=== PATIENT | female | born 1975 | race Caucasian/White ===

== ENCOUNTER 2016-12-31 06:41 | Inpatient (IN) | payer MEDICAID, OTHER ==
[~2016-12-31] VITALS: Ht 152.4 cm; Wt 54.4 kg
[2016-12-31] VITALS (10 sets, daily range): BP systolic 101–121; BP diastolic 65–78; PULSE 75–101; RESP 16–18; TEMP 98.6; Ht 152.4 cm; Wt 54.4 kg
[~2016-12-31 06:41] MED LIST: ALBU2.5V3 NEB; ATEN50TA PO; SYN1 PO
[2016-12-31] MEDS ORDERED: ASPIRIN 325 MG TAB PO STA (07:00)
[2016-12-31] MEDS ORDERED: NITROGLYCERIN 2% 1 GM OINT PKT TD STA (07:00)
--- NOTE | 2016-12-31 07:06 | ERA ---
ER Documentation Chief Complaint Date/Time DATE: 12/31/16 TIME: 07:03 Chief Complaint rt flnak pain , chest pain , cough , sob HPI 41-year-old female history of hypertension, hyperlipidemia, smoking, family history of cardiac disease presents with myriad complaints. The patient states that yesterday evening this started with lumbar back pain though she states that she recently moved her daughter into an apartment. However early this morning the patient woke up and started to walk to the bathroom when she started to have chest pain. She described it initially as pleuritic and sharp with associated shortness of breath and now dull, pressure-like radiating to the left upper extremity. She did describe a single episode of vomiting that was nonbloody nonbilious. No fevers or chills. The patient states that she feels short of breath and has generalized malaise. ROS All systems reviewed and are negative except as per history of present illness. Medications Home Meds Reported Medications Albuterol Sulfate* (Albuterol Sulfate* Neb) 0.083%-3 Ml Neb, 2.5 MG NEB Q4H Y for WHEEZING AND SOB, EA 07/12/15 Levothyroxine Sodium* (Synthroid*) 100 Mcg Tablet, 100 MCG PO DAILY 06/19/13 Atenolol* (Atenolol*) 50 Mg Tablet, 50 MG PO DAILY 06/19/13 Allergies Allergies: Coded Allergies: Penicillins (Verified Allergy, Mild, 02/04/14) Uncoded Allergies: PCN (Allergy, Mild, 08/09/11) PENICILLIN (Allergy, Mild, 06/19/13) PMhx/Soc History of Surgery: Yes (THROIDECTOMY) Anesthesia Reaction: No Hx Neurological Disorder: No Hx Respiratory Disorders: Yes (ASTHMA) Hx Cardiac Disorders: Yes (HYPERTENSION,ME) Hx Psychiatric Problems: No Hx Miscellaneous Medical Probl: Yes (CA OF THYROID) Hx Alcohol Use: Yes (SOCIAL) Hx Substance Use: Yes Hx Tobacco Use: Yes (2-5 CIGS) FmHx Family History: coronary disease, No diabetes Physical Exam Vitals Vital Signs Date Time Temp Pulse Resp B/P Pulse Ox O2 Delivery O2 Flow Rate FiO2 12/31/16 07:12 98.6 86 15 136/95 100 Room Air 12/31/16 07:12 Nasal Cannula 2 12/31/16 06:44 98.2 102 18 113/86 98 Physical Exam General: Well developed, well nourished, no acute distress Head: Normocephalic, atraumatic. Eyes: Pupils equally reactive, EOM intact ENT: Moist mucous membranes Neck: Supple, no lymphadenopathy Respiratory: Lungs clear bilaterally, no distress Cardiovascular: RRR, no murmurs, rubs, or gallops Abdominal: Soft, non-tender, non-distended, no peritoneal signs Back: No CVA tenderness : Deferred MSK: No edema, no unilateral swelling, 5/5 strength, no pulse deficit Neurologic: Alert and oriented, moving all extremities, normal speech, no focal weakness, no cerebellar signs Skin: No rash Psych: Anxious mood Result Diagram: 12/31/16 0711 12/31/16 0711 Results 24 hrs Laboratory Tests Test 12/31/16 07:11 Activated Partial Thromboplast Time 26.8Sec Anion Gap 16 Basophils # 0.010^3/ul Basophils % 0.2% Blood Urea Nitrogen 7mg/dl Calcium Level 8.8mg/dl Carbon Dioxide Level 24mmol/L Chloride Level 105mmol/L Creatinine 0.60mg/dl D-Dimer < 460.00ng/ml D-Dimer Comment Eosinophils # 0.110^3/ul Eosinophils % 0.5% Glucose Level 103mg/dl Hematocrit 41.4% Hemoglobin 13.8g/dl INR International Normalized Ratio 0.98 Lymphocytes # 2.110^3/ul Lymphocytes % 15.7% Mean Corpuscular Hemoglobin 32.2pg Mean Corpuscular Hemoglobin Concent 33.3g/dl Mean Corpuscular Volume 96.5fl Mean Platelet Volume 10.0fl Monocytes # 0.710^3/ul Monocytes % 5.4% Neutrophils # 10.210^3/ul Neutrophils % 77.9% Nucleated Red Blood Cells # 0.010^3/ul Nucleated Red Blood Cells % 0.0/100WBC Platelet Count 00063^3/UL Potassium Level 4.0mmol/L Prothrombin Time 13.0Sec Prothrombin Time Ratio 1.0 Red Blood Count 4.2910^6/ul Red Cell Distribution Width 14.3% Serum HCG, Qualitative NEGATIVE Sodium Level 141mmol/L Troponin I 0.013ng/ml White Blood Count 13.010^3/ul Current Medications Medications (Trade) Dose Ordered Sig/Manny Route PRN Reason Start Time Stop Time Status Last Admin Dose Admin Aspirin (Aspirin) 325 mg ONCE STAT PO 12/31/16 07:00 12/31/16 07:01 DC 12/31/16 07:22 Nitroglycerin (Nitroglycerin 2% Oint) 1 inch ONCE STAT TD 12/31/16 07:00 12/31/16 07:01 DC 12/31/16 07:22 Acetaminophen/ Hydrocodone Bitart ([place] (10/325)) 1 tab ONCE ONCE PO 12/31/16 07:30 12/31/16 07:31 DC 12/31/16 07:32 Ondansetron HCl (Zofran Odt) 4 mg ONCE STAT ODT 12/31/16 07:26 12/31/16 07:28 DC 12/31/16 07:33 Ketorolac Tromethamine (Toradol) 15 mg ONCE STAT IV 12/31/16 08:39 12/31/16 08:40 DC 12/31/16 08:43 Procedures/MDM EKG, MONITORS, & DIAGNOSTIC IMAGING: EKG: I reviewed and interpreted a 12-lead EKG. Rhythm: Normal sinus rhythm Ectopy: None Intervals: No abnormalities ST segments: No elevations or depressions T waves: No contiguous inversions Repeat EKG: EKG: I reviewed and interpreted a 12-lead EKG. Rhythm: Normal sinus rhythm Ectopy: None Intervals: No abnormalities ST segments: No elevations or depressions T waves: No contiguous inversions Chest x-ray: I reviewed and interpreted a 1 view of the chest Mediastinum: No enlargement Cardiac silhouette: No cardiomegaly Airspace: Clear lung barrera bilaterally without evidence of pneumothorax Bones: No evidence of fracture LAB INTERPRETATION: Negative troponin, negative d-dimer MEDICAL DECISION MAKING: The patient's history, physical exam and clinical presentation is concerning for possible cardiogenic etiology and acute coronary syndrome. However, the patient is a very difficult historian and her complaints are multisystemic. This is possibly related to anxiety. However, the patient does have multiple risk factors including family heart disease age less than 40. Given the significance of the patient's past medical history and family history this does raise my concern for possible cardiac etiology. She states last stress test was 5 years ago. Based on the patient's clinical exam and history and risk factors, I have a much lower clinical concern for pulmonary embolism, acute aortic dissection, pneumothorax, pneumonia, cardiac tamponade. However, patient describes pleuritic pain. So we will check d dimer given wells low risk criteria is met. HEART Score: 3 MACE Rate: 1.7% Shared Decision Making: We had a conversation regarding risk stratification, MACE rate, and the risks, benefits, alternatives of disposition planning options. Disposition planning: Given that the last stress test was 5 years ago I recommend inpatient hospitalization for rule out of ACS and consideration for provocative testing. Patient is agreeable. ER COURSE: The patient continues to be well-appearing she was given aspirin, nitroglycerin. She was given oral [place] for pain. She states that she takes [place] at home for chronic pain. She is asking for stronger medication. I do not feel the patient requires IV or IM narcotics. The patient was given Toradol. There is some component of drug-seeking or possible narcotic dependence in this patient. However, given the patient's risk factors for cardiac disease inpatient hospitalization to rule out would be appropriate. The patient was informed that IV or IM narcotics would not be provided. Troponin is negative, d-dimer is negative I kept the patient and/or family informed of laboratory and diagnostic imaging results throughout the emergency room course. DISPOSITION PLAN: Telemetry admission for management of chest pain CONSULTATION: Accepting care team and consultations: I discussed the current laboratory data, diagnostic imaging and emergency care provided. Admitting team: Dr. Fredo Cee Admitting team indication: Insurance directed, [facility] Departure Diagnosis: Primary Impression: Chest pain Qualified Code: R07.9 - Chest pain, unspecified type Additional Impression: Drug-seeking behavior Condition: Stable ADALBERTO ORDOÑEZ MD Dec 31, 2016 07:06
[2016-12-31] MEDS ORDERED: ONDANSETRON (ODT) 4 MG TAB ODT STA (07:26)
[2016-12-31] MEDS ORDERED: HYDROCODONE/APAP (10/325) TAB PO ONE (07:30)
[2016-12-31 07:40] LABS: ADD SCAN DIFF NO
--- NOTE | 2016-12-31 07:43 | RADRPT ---
PROCEDURE: CHEST - 1 VIEW CLINICAL INDICATION: 41-year-old female with chest pain. TECHNIQUE: A single frontal AP semi-erect view of the chest was performed portably. The images we re reviewed on a PACS workstation. COMPARISON: Chest x-ray July 12, 2015. FINDINGS: The cardiomediastinal silhouette has a normal appearance. There is no evidence for an infiltrate. There is no evidence for congestive heart failure. There is no evidence for pneumothorax. The osseou s structures are intact. IMPRESSION: No evidence for active cardiopulmonary disease. .Michel Barillas MD, Date Time Electronically viewed and signed by .Michel Barillas MD, on 12/31/2016 07:43 .Andre/
[2016-12-31 07:44] LABS: BASOPHILS % 0.2 % (0.0-2.0); EOSINOPHILS # 0.1 10^3/ul (0.0-0.5); EOSINOPHILS % 0.5 % (0.0-7.0); HEMATOCRIT 41.4 % (37.0-47.0); HEMOGLOBIN 13.8 g/dl (12.0-16.0); LYMPHOCYTES # 2.1 10^3/ul (0.8-2.9); LYMPHOCYTES % 15.7 % (15.0-51.0); MEAN CORPUSCULAR HEMOGLOBIN 32.2 pg (29.0-33.0); MEAN CORPUSCULAR HGB CONC 33.3 g/dl (32.0-37.0); MEAN CORPUSCULAR VOLUME 96.5 fl (82.0-101.0); MONOCYTE # 0.7 10^3/ul (0.3-0.9); MONOCYTES % 5.4 % (0.0-11.0); NEUTROPHIL # 10.2 10^3/ul (1.6-7.5); NEUTROPHILS % 77.9 % (39.0-77.0); PLATELET COUNT 403 10^3/UL (140-415); RED BLOOD COUNT 4.29 10^6/ul (4.20-5.40); RED CELL DISTRIBUTION WIDTH 14.3 % (11.5-14.5)
[2016-12-31 07:54] LABS: INR 0.98; PARTIAL THROMBOPLASTIN TIME 26.8 Sec (25.0-35.0)
[2016-12-31 07:55] LABS: CREATININE 0.6 mg/dl (0.44-1.00)
[2016-12-31 07:56] LABS: CALCIUM 8.8 mg/dl (8.4-10.2)
[2016-12-31 08:07] LABS: TROPONIN-I 0.013 ng/ml (0.00-0.12)
[2016-12-31 08:33] LABS: D-DIMER < 460.00 ng/ml (<460)
[2016-12-31] MEDS ORDERED: KETOROLAC 15 MG INJ IV STA (08:39)
[2016-12-31] MEDS ORDERED: ACETAMINOPHEN 325 MG TAB PO PRN (09:00)
[2016-12-31] MEDS ORDERED: ONDANSETRON 4 MG INJ IV PRN (09:00)
[2016-12-31] MEDS: morphine 2 MG INJ IV PRN ×3 (11:14→20:40)
[2016-12-31] MEDS: PANTOPRAZOLE (EC) 40 MG TAB PO SCH (11:50)
--- NOTE | 2016-12-31 12:07 | HP ---
Date/Time of Note Date/Time of Note DATE: 12/31/16 TIME: 11:58 Assessment/Plan VTE Prophylaxis VTE Prophylaxis Intervention: ambulation, SCD's (restricted) Lines/Catheters IV Catheter Type (from Nrsg): [place] Assessment/Plan Chief Complaint/Hosp Course 1. ACS. will do cardiac enzymes and ECG, pt is on telemonitoring. Dr Cardoza will follow 2. S/p thyroidectomy, pt is on levothyrixine 100 mcg daily 3. Headache, pt requested dilaudid. Pt has extensive list of previous hospitalizations. [place] 5/325 q 6 hours as needed PO ordered 4. Hypertension, controlled 5. Continue home meds and diet, restrict ambulations until ACS cleared 6. Nicotine dependence Problems: Assessment/Plan 1. Rule out non stemi [place] 2. ACS diagnostic per hospital protocol 3. Chronic pain control 4. Stop smoking HPI/ROS Admit Date/Time Admit Date/Time Dec 31, 2016 at 08:57 ROS Constitutional: other (pain in back, pain in head), poor po Eyes: no complaints ENT: no complaints Respiratory: no complaints Cardiovascular: chest pain, no complaints Gastrointestinal: no complaints Genitourinary: no complaints Musculoskeletal: back pain Skin: no complaints Neurologic: no complaints Endocrine: no complaints Lymphatic: no complaints Psychological: no complaints PMH/Family/Social Past Medical History Medical History: cancer (hs of thyroid cancer), hypertension, other (frequent headaches) Past Surgical History Past Surgical Hx: other (thyroidoectomy) Family History Significant Family History: no pertinent family hx Social History Alcohol Use: occasionally Smoking Status: Current every day smoker Drug Use: none Exam/Review of Systems Vital Signs Vitals Vital Signs Date Time Temp Pulse Resp B/P Pulse Ox O2 Delivery O2 Flow Rate FiO2 12/31/16 11:41 98.7 95 18 116/67 97 12/31/16 10:08 Room Air 12/31/16 09:08 2.0 Exam Constitutional: alert, oriented, well developed Psych: no complaints Head: normocephalic Eyes: nl conjunctiva ENMT: nl external ears & nose Neck: supple Respiratory: clear to auscultation Cardiovascular: other (SR on monitor), regular rate and rhythm Gastrointestinal: soft Genitourinary - Female: nl external genitalia Musculoskeletal: muscle weakness Extremities: normal pulses Neurological: ZIPPER REPAIRER II-XII intact, nl speech Skin: nl turgor Labs Result Diagram: 12/31/1671012/31/16 07 Medications Medications Current Medications Morphine Sulfate (morphine) 2 mg Q4H PRN IV pain Last administered on 11:14; Admin Dose 2 MG; Start 12/31/16 at 11:00 Aspirin (Aspirin) 81 mg DAILY PO ; Start 01/01/17 at 09:00 Pantoprazole (Protonix Tab) 40 mg DAILY@06 PO Last administered on 12/31/16 11 :50; Admin Dose 40 MG; Start 12/31/16 at 11:00 SAMIA FOURNIER 18, 2017 12:07
[2016-12-31] MEDS: HYDROCODONE/APAP (5/325) TAB PO PRN ×2 (12:50→18:58)
[2016-12-31] MEDS: ONDANSETRON 4 MG INJ IV PRN ×2 (12:51→17:08)
[2016-12-31 14:12] LABS: CREATINE KINASE 25 IU/L (23-200)
[2016-12-31 14:28] LABS: CK-MB < 0.22 ng/ml (0.0-2.4); TROPONIN-I < 0.012 ng/ml (0.00-0.12)
[2016-12-31] MEDS: SOD CHLORIDE 0.9% 1,000 ML IV SCH (15:02)
--- NOTE | 2016-12-31 15:08 | CONS ---
DATE OF ADMISSION: 12/31/2016 DATE OF CONSULTATION: 12/31/2016 REFERRING PHYSICIAN: Fredo Barker MD REASON FOR EVALUATION: Chest pain, 12/31/2016. HISTORY OF PRESENT ILLNESS: Ms. Williamson is a 41-year-old woman with history of hypertension, dyslipid emia, history of nicotine dependence, history of chronic pain syndrome and thyroidectomy who comes t o the hospital now for evaluation of chest pain. The patient had multiple prior admissions for ches t pain related reasons; however, it does not appear that she ruled in for acute myocardial infarctio n during this admission. The patient's EKG shows some nonspecific ST-T changes with no evidence of ischemia. For now, I think conservative therapy is expected for pretest probability of cardiac dise ase is fairly low. I think outpatient stress test would be reasonable for this particular patient. PAST MEDICAL HISTORY: Hypertension, dyslipidemia, chronic pain syndrome, multiple admissions for re current episodes of chest pain, rule out ACS. History of thyroid disease. ALLERGIES: NO KNOWN DRUG ALLERGIES. SOCIAL HISTORY: ____ of drug and alcohol use. FAMILY HISTORY: Negative for sudden cardiac or premature coronary artery disease. CURRENT MEDICATIONS: 1. Aspirin 81 mg. 2. Albuterol. 3. ____. 4. Morphine. 5. Pantoprazole. REVIEW OF SYSTEMS: CONSTITUTIONAL: No fevers, no chills. Chest pain as described. HEENT: No changes in vision or hearing. CARDIAC: No chest pain reported now, more in the area of the left shoulder and not through the prec ordium. RESPIRATORY: No shortness of breath. GASTROINTESTINAL: No nausea, vomiting, diarrhea, constipation. GENITOURINARY: No dysuria, hematuria. NEUROLOGIC: No focal neurologic deficits. HEMATOLOGIC: No bruising. PSYCHIATRIC: History of psychiatric disease. PHYSICAL EXAMINATION: VITAL SIGNS: Temperature is 98.7, heart rate 65, blood pressure 116/67. GENERAL: She is a thin woman in no acute distress, alert and oriented x3, aware of her condition. HEAD: Normocephalic and atraumatic. Eyes anicteric. NECK: Supple. JVD 6-7 cm. There is no lymphadenopathy or thyromegaly. HEART: Regular with soft holosystolic murmur. ____ PMI is nondisplaced. I do not hear an S3. LUNGS: Coarse at the bases. ABDOMEN: Distended, bowel sounds are present. There is no hepatosplenomegaly. GENITOURINARY: Grossly intact. EXTREMITIES: Show no clubbing, cyanosis, or edema. LABORATORY DATA: Sodium 141, potassium 4.0, BUN 7, creatinine 0.6. Troponin is negative at 0.01 x3 . ASSESSMENT AND PLAN: 1. Chest pain. Patient does report of chest pain. I doubt acute ischemia. The patient did not ru le in for acute myocardial infarction. For now, conservative therapy is expected. Outpatient stres s test to be considered. 2. Pain syndrome. The patient with pain syndrome. Her medications have been titrated per primary team. 3. ____ disease. Refer to primary team for evaluation and management. 4. Abnormal EKG. The patient has nonspecific ST-T changes. No evidence of ischemia. No particula r treatment is required. 5. Psychiatric illness. Defer to primary team for evaluation. I would like to thank Dr. Barker for referring this patient for my evaluation. Dictated By: RICHIE POWELL MD ML/NTS Conf#: [id number] DID#: [id number] CC: FREDO BARKER MD;*EndCC*
[2016-12-31] MEDS: ALBUTEROL 0.083% (NEB) 2.5 MG/3 ML AMP HHN PRN (15:55)
[2016-12-31 20:01] LABS: CREATINE KINASE 24 IU/L (23-200)
[2016-12-31 20:11] LABS: CK-MB < 0.22 ng/ml (0.0-2.4)
[2016-12-31 20:16] LABS: TROPONIN-I < 0.012 ng/ml (0.00-0.12)
[2017-01-01] VITALS (15 sets, daily range): BP systolic 109–134; BP diastolic 65–84; PULSE 72–90; RESP 16–20
[2017-01-01] MEDS: morphine 2 MG INJ IV PRN ×4 (02:44→17:32)
[2017-01-01] MEDS: HYDROCODONE/APAP (5/325) TAB PO PRN ×3 (05:49→20:13)
[2017-01-01] MEDS: PANTOPRAZOLE (EC) 40 MG TAB PO SCH (06:52)
[2017-01-01] MEDS: ONDANSETRON 4 MG INJ IV PRN (07:47)
[2017-01-01] MEDS: ALBUTEROL 0.083% (NEB) 2.5 MG/3 ML AMP HHN PRN (08:22)
[2017-01-01] MEDS: ASPIRIN 81 MG TAB PO SCH (08:27)
[2017-01-01 09:31] LABS: ADD SCAN DIFF NO
[2017-01-01 09:36] LABS: BASOPHILS % 0.1 % (0.0-2.0); EOSINOPHILS # 0.1 10^3/ul (0.0-0.5); EOSINOPHILS % 0.9 % (0.0-7.0); HEMATOCRIT 37.1 % (37.0-47.0); HEMOGLOBIN 11.9 g/dl (12.0-16.0); LYMPHOCYTES # 2.6 10^3/ul (0.8-2.9); MEAN CORPUSCULAR HEMOGLOBIN 31.3 pg (29.0-33.0); MEAN CORPUSCULAR HGB CONC 32.1 g/dl (32.0-37.0); MEAN CORPUSCULAR VOLUME 97.6 fl (82.0-101.0); MEAN PLATELET VOLUME 9.6 fl (7.4-10.4); MONOCYTE # 0.6 10^3/ul (0.3-0.9); MONOCYTES % 6.6 % (0.0-11.0); NEUTROPHILS % 64.2 % (39.0-77.0); PLATELET COUNT 339 10^3/UL (140-415); RED CELL DISTRIBUTION WIDTH 14.4 % (11.5-14.5); WHITE BLOOD COUNT 9.3 10^3/ul (4.8-10.8)
[2017-01-01 09:46] LABS: ALBUMIN 3.8 g/dl (3.3-4.9)
[2017-01-01 09:47] LABS: CHLORIDE 107 mmol/L (97-110); POTASSIUM 3.5 mmol/L (3.5-5.1); SODIUM 139 mmol/L (135-144)
[2017-01-01 09:49] LABS: BILIRUBIN,INDIRECT 0.3 mg/dl (0-1.1); BILIRUBIN,TOTAL 0.3 mg/dl (0.2-1.3); CREATININE 0.57 mg/dl (0.44-1.00)
[2017-01-01 09:50] LABS: ALANINE AMINOTRANSFERASE 17 IU/L (13-69); ALBUMIN/GLOBULIN RATIO 1.26; ALKALINE PHOSPHATASE 44 IU/L (42-121); ANION GAP 16 (8-16); ASPARTATE AMINO TRANSFERASE 15 IU/L (15-46); BLOOD UREA NITROGEN 9 mg/dl (7-20); CARBON DIOXIDE 20 mmol/L (21-31); GLUCOSE 85 mg/dl (70-220); TOTAL PROTEIN 6.8 g/dl (6.1-8.1)
[2017-01-01 10:04] LABS: TROPONIN-I < 0.012 ng/ml (0.00-0.12)
[2017-01-01] MEDS: SOD CHLORIDE 0.9% 1,000 ML IV SCH (10:50)
[2017-01-01] MEDS: CYCLOBENZAPRINE 10 MG TAB PO SCH ×2 (14:13→21:00)
--- NOTE | 2017-01-01 14:42 | PN ---
Date/Time of Note Date/Time of Note DATE: 01/01/17 TIME: 14:39 Assessment/Plan VTE Prophylaxis VTE Prophylaxis Intervention: other Lines/Catheters IV Catheter Type (from Nrsg): Peripheral IV Assessment/Plan Chief Complaint/Hosp Course 1. ACS. 2. S/p thyroidectomy, pt is on levothyrixine 100 mcg daily 3. Headache, better 4. Hypertension, controlled [address] back per cardio pain meds Problems: Subjective 24 Hr Interval Summary Eyes: no complaints Cardiovascular: no complaints Gastrointestinal: no complaints Musculoskeletal: back pain (+) Exam/Review of Systems Vital Signs Vitals Vital Signs Date Time Temp Pulse Resp B/P Pulse Ox O2 Delivery O2 Flow Rate FiO2 01/01/17 12:16 98.3 78 18 133/84 99 Room Air 01/01/17 08:23 21 12/31/16 09:08 2.0 Intake and Output 12/31/16 12/31/16 01/01/17 15:00 23:00 07:00 Intake Total 975 ml Output Total 0 ml Balance 975 ml Exam Respiratory: clear to auscultation Cardiovascular: regular rate and rhythm Gastrointestinal: soft Musculoskeletal: other (back pain +) Results Result Diagram: 01/01/1725 01/01/17 0925 Results 24 hrs Laboratory Tests Test 12/31/16 19:00 01/01/17 09:25 Creatine Kinase 24 Creatine Kinase Index 0.9 Creatinine Kinase MB (Mass) < 0.22 Troponin I < 0.012 < 0.012 Alanine Aminotransferase (ALT/SGPT) 17 Albumin 3.8 Albumin/Globulin Ratio 1.26 Alkaline Phosphatase 44 Anion Gap 16 Aspartate Amino Transf (AST/SGOT) 15 Basophils # 0.0 Basophils % 0.1 Blood Urea Nitrogen 9 Calcium Level 8.0 L Carbon Dioxide Level 20 L Chloride Level 107 Creatinine 0.57 Direct Bilirubin 0.00 Eosinophils # 0.1 Eosinophils % 0.9 Globulin 3.00 Glucose Level 85 Hematocrit 37.1 Hemoglobin 11.9 L Indirect Bilirubin 0.3 Lymphocytes # 2.6 Lymphocytes % 28.0 Mean Corpuscular Hemoglobin 31.3 Mean Corpuscular Hemoglobin Concent 32.1 Mean Corpuscular Volume 97.6 Mean Platelet Volume 9.6 Monocytes # 0.6 Monocytes % 6.6 Neutrophils # 6.0 Neutrophils % 64.2 Nucleated Red Blood Cells # 0.0 Nucleated Red Blood Cells % 0.0 Platelet Count 339 Potassium Level 3.5 Red Blood Count 3.80 L Red Cell Distribution Width 14.4 Sodium Level 139 Total Bilirubin 0.3 Total Protein 6.8 White Blood Count 9.3 # Medications Medications Current Medications Morphine Sulfate (morphine) 2 mg Q4H PRN IV pain Last administered on 13:32; Admin Dose 2 MG; Start 12/31/16 at 11:00 Aspirin (Aspirin) 81 mg DAILY PO Last administered on 01/01/17 08:27; Admin Dose 81 MG; Start 01/01/17 at 09:00 Pantoprazole (Protonix Tab) 40 mg DAILY@06 PO Last administered on 01/01/17 06 :52; Admin Dose 40 MG; Start 12/31/16 at 11:00 Acetaminophen/ Hydrocodone Bitart ([place] (5/325)) 1 tab Q6H PRN PO severe headache Last administered on 01/01/17 11:50; Admin Dose 1 TAB; Start 12/31/16 at 12:00 Ondansetron HCl 4 mg 4 mg Q4H PRN IV NAUSEA AND/OR VOMITING Last administered on 01/01/17 07:47; Admin Dose 4 MG; Start 12/31/16 at 13:00 Sodium Chloride (NS) 1,000 ml @ 50 mls/hr Q20H IV Last administered on 10:50; Admin Dose 50 MLS/HR; Start 12/31/16 at 15:00 Zolpidem Tartrate (Ambien) 5 mg HS PRN PO INSOMNIA; Start 12/31/16 at 23:30 Cyclobenzaprine HCl (Flexeril) 10 mg BID PO Last administered on 01/01/17 14: 13; Admin Dose 10 MG; Start 01/01/17 at 14:00 GRACE BARKER MD Jan 01, 2017 14:42
--- NOTE | 2017-01-01 16:13 | RADRPT ---
PROCEDURE: CT thoracic spine without contrast. CLINICAL INDICATION: Thoracic spine pain. TECHNIQUE: The study was performed utilizing a multislice multidetector CT scanner. Direct spiral 1 mm axial sections were obtained through the thoracic spine without contrast. 1 or more of the fol lowing dose reduction techniques were utilized: Automated exposure control, adjustment of the mA an d/or kV according to patient's size, iterative reconstruction technique. Coronal and sagittal refor mations were obtained. The images were reviewed on a PACS workstation. RADIATION DOSE: CTDIvol: 7.80 mGyDLP: 24.6 mGy-cm COMPARISON: No prior studies are available for comparison. FINDINGS: The alignment of the thoracic spine is within normal limits. The vertebral body heights and marrow density are normal in appearance. There is no evidence of fracture there are small anterior osteoph ytes T6-7 with prominent posterior central disc/osteophyte complex measuring 6.3 mm. This results i n moderate mass effect on the thoracic thecal sac measuring 7 mm midline AP diameter. The remaining intervertebral disc spaces are preserved. The paraspinal soft tissues unremarkable. There is no s ignificant narrowing of the thoracic thecal sac or neural foramina. The following levels are positive on axial images: T6-7: There is a 6.3 mm AP by 9.4 mm transverse posterior disc/osteophyte complex. The thecal sac measures 7 mm midline AP diameter. The neural foramina are patent. T7-8: There is a 1-2 mm right paracentral disc/osteophyte complex. The thecal sac and neural magalie terri are patent. T8-9: There is a 1-2 mm right paracentral disc/osteophyte complex. The thecal sac and neural magalie terri are patent. IMPRESSION: 1. No acute abnormality of the thoracic spine. No evidence of fracture. 2. Mild to moderate degenerative disc disease at T6-7 with prominent 6.3 x 9.4 mm disc/osteophyte c omplex. This results in moderate central stenosis. The neural foramina appear patent at this level . RPTAT: HGAS .Rafa Grove MD, MD Date Time Electronically viewed and signed by .Rafa Grove MD, on 01/01/2017 16:13 .S/
--- NOTE | 2017-01-01 16:17 | RADRPT ---
PROCEDURE: CT Lumbar Spine without contrast. CLINICAL INDICATION: Lumbar spine pain. TECHNIQUE: The study was performed on a multislice multidetector CT scanner. Spiral axial 1 mm im ages were obtained through the lumbar spine without intravenous contrast. 1 or more of the following dose reduction techniques were utilized: Automated exposure control, adjustment of the mA and/or k V according to patient's size, iterative reconstruction technique. Coronal and sagittal reformation s were obtained. The images were reviewed on a PACS workstation. RADIATION DOSE: CTDIvol: 7.3 mGyDLP: 195.1 mGy-cm COMPARISON: No prior studies are available for comparison. FINDINGS: The alignment of the lumbar spine is normal. No vertebral body subluxation is seen. The interverte bral discs are normal in height. The vertebral body heights and marrow density are normal. The par aspinal soft tissues unremarkable. No significant paraspinal soft tissue swelling. L1-L2: The posterior margin of the disc is normal in appearance. No significant disc bulge or prot rusion is evident. The central canal and neural foramina are adequately patent. L2-L3: The posterior margin of the disc is normal in appearance. No significant disc bulge or prot rusion is evident. The central canal and neural foramina are adequately patent. L3-L4: There is a 3.5 mm annular disc bulge asymmetric to the right paracentral region. The thecal sac measures 7.4 mm midline AP diameter. There is severe right and moderate left lateral recess na rrowing. There is mild to moderate bilateral neural foraminal narrowing. There is mild bilateral fa cet spondylosis. L4-L5: There is a 4-5 mm annular disc bulge with moderate indentation on the ventral thecal sac. T he thecal sac measures 6.9 mm midline AP diameter. There is moderate bilateral facet spondylosis wi th buckling of the ligamentum flavum. There is severe narrowing of both lateral recesses. There is moderate bilateral neural foraminal narrowing. L5-S1: There is a 2-3 mm annular disc bulge. The thecal sac and lateral recesses are patent. Ther e is mild bilateral facet spondylosis. There is mild to moderate bilateral neural foraminal narrowi ng. IMPRESSION: 1. No acute abnormality of the lumbar spine. No evidence of fracture. 2. 4-5 mm annular disc bulge at L4-5, with subsequent moderate central stenosis, severe narrowing o f both lateral recesses and moderate bilateral neural foraminal narrowing. 3. 3.5 mm annular disc bulge asymmetric to the right paracentral region at L3-4 with subsequent mod erate central stenosis, severe right and moderate left lateral recess narrowing and mild to moderate bilateral neural foraminal narrowing. RPTAT: HGAS .Rafa Grove MD, MD Date Time Electronically viewed and signed by .Rafa Grove MD, on 01/01/2017 16:17 .S/
--- NOTE | 2017-01-01 18:02 | CONS ---
Date/Time of Note Date/Time of Note DATE: 01/01/17 TIME: 18:01 Assessment/Plan Assessment/Plan Additional Assessment/Plan 1. Chest pain. Patient does report of chest pain. I doubt acute ischemia. The patient did not rule in for acute myocardial infarction. For now, conservative therapy is expected. Outpatient stress test to be considered. DOUBT ISCHEMIA - outpt re-stratification advised. 2. Pain syndrome. The patient with pain syndrome. Her medications have been titrated per primary team. Pain Rx as needed. 3. Thyroid disease. Refer to primary team for evaluation and management. DR. Joy follows. 4. Abnormal EKG. The patient has nonspecific ST-T changes. No evidence of ischemia. No particular treatment is required. 5. Psychiatric illness. Defer to primary team for evaluation. Consultation Date/Type/Reason Admit Date/Time Dec 31, 2016 at 08:57 Initial Consult Date 24 HR Interval Summary Free Text/Dictation No acute change - no evidence of ischemia. ROS: No fever, no chills, no nausea, no vomiting, no diarrhea/constipation No recent weight changes No chest pain, no PND, no orthopnea No dizziness, blurred vision No thirst, no heat or cold intolerance Exam/Review of Systems Vital Signs Vitals Vital Signs Date Time Temp Pulse Resp B/P Pulse Ox O2 Delivery O2 Flow Rate FiO2 01/01/17 16:57 97.8 83 18 124/84 100 Room Air 01/01/17 08:23 21 12/31/16 09:08 2.0 Intake and Output 12/31/16 12/31/16 01/01/17 15:00 23:00 07:00 Intake Total 975 ml Output Total 0 ml Balance 975 ml Exam General: WN/WD/NAD, AOx 3 HEENT: Unicetric/atraumatic/EOMI (follows commands) NECK: JVD elevated, no thyromegaly Lymph: no lymphadenopathy HEART: regular with no S3, II/ systolic murmur at apex LUNGS: Coarse sounds ABD: soft, NT, ND, +BS : Intact Neuro: non focal SKIN: chronic changes EXT: trace edema Results Result Diagram: 01/01/1792401/01/1725 Results 24 hrs Laboratory Tests Test 12/31/16 19:00 01/01/17 09:25 Creatine Kinase 24 Creatine Kinase Index 0.9 Creatinine Kinase MB (Mass) < 0.22 Troponin I < 0.012 < 0.012 Alanine Aminotransferase (ALT/SGPT) 17 Albumin 3.8 Albumin/Globulin Ratio 1.26 Alkaline Phosphatase 44 Anion Gap 16 Aspartate Amino Transf (AST/SGOT) 15 Basophils # 0.0 Basophils % 0.1 Blood Urea Nitrogen 9 Calcium Level 8.0 L Carbon Dioxide Level 20 L Chloride Level 107 Creatinine 0.57 Direct Bilirubin 0.00 Eosinophils # 0.1 Eosinophils % 0.9 Globulin 3.00 Glucose Level 85 Hematocrit 37.1 Hemoglobin 11.9 L Indirect Bilirubin 0.3 Lymphocytes # 2.6 Lymphocytes % 28.0 Mean Corpuscular Hemoglobin 31.3 Mean Corpuscular Hemoglobin Concent 32.1 Mean Corpuscular Volume 97.6 Mean Platelet Volume 9.6 Monocytes # 0.6 Monocytes % 6.6 Neutrophils # 6.0 Neutrophils % 64.2 Nucleated Red Blood Cells # 0.0 Nucleated Red Blood Cells % 0.0 Platelet Count 339 Potassium Level 3.5 Red Blood Count 3.80 L Red Cell Distribution Width 14.4 Sodium Level 139 Total Bilirubin 0.3 Total Protein 6.8 White Blood Count 9.3 # Medications Medications Current Medications Morphine Sulfate (morphine) 2 mg Q4H PRN IV pain Last administered on 17:32; Admin Dose 2 MG; Start 12/31/16 at 11:00 Aspirin (Aspirin) 81 mg DAILY PO Last administered on 01/01/17 08:27; Admin Dose 81 MG; Start 01/01/17 at 09:00 Pantoprazole (Protonix Tab) 40 mg DAILY@06 PO Last administered on 01/01/17 06 :52; Admin Dose 40 MG; Start 12/31/16 at 11:00 Acetaminophen/ Hydrocodone Bitart ([place] (5/325)) 1 tab Q6H PRN PO severe headache Last administered on 01/01/17 11:50; Admin Dose 1 TAB; Start 12/31/16 at 12:00 Ondansetron HCl 4 mg 4 mg Q4H PRN IV NAUSEA AND/OR VOMITING Last administered on 01/01/17 07:47; Admin Dose 4 MG; Start 12/31/16 at 13:00 Sodium Chloride (NS) 1,000 ml @ 50 mls/hr Q20H IV Last administered on 10:50; Admin Dose 50 MLS/HR; Start 12/31/16 at 15:00 Zolpidem Tartrate (Ambien) 5 mg HS PRN PO INSOMNIA; Start 12/31/16 at 23:30 Cyclobenzaprine HCl (Flexeril) 10 mg BID PO Last administered on 01/01/17t 14: 13; Admin Dose 10 MG; Start 01/01/17 at 14:00 RICHIE POWELL MD Jan 01, 2017 18:02
[2017-01-01] MEDS: ZOLPIDEM 5 MG TAB PO PRN (21:27)
[2017-01-02] VITALS (11 sets, daily range): BP systolic 113–157; BP diastolic 76–91; PULSE 68–109; RESP 14–18
[2017-01-02] MEDS: morphine 2 MG INJ IV PRN ×5 (01:23→20:08)
[2017-01-02] MEDS: HYDROCODONE/APAP (5/325) TAB PO PRN ×4 (02:22→23:14)
[2017-01-02] MEDS: PANTOPRAZOLE (EC) 40 MG TAB PO SCH (06:23)
[2017-01-02] MEDS: SOD CHLORIDE 0.9% 1,000 ML IV SCH ×2 (07:00→23:14)
[2017-01-02] MEDS: ASPIRIN 81 MG TAB PO SCH (08:43)
[2017-01-02] MEDS: CYCLOBENZAPRINE 10 MG TAB PO SCH ×2 (08:44→20:52)
--- NOTE | 2017-01-02 12:14 | CONS ---
Date/Time of Note Date/Time of Note DATE: 01/02/17 TIME: 12:09 Assessment/Plan Assessment/Plan Chief Complaint/Hosp Course Imp: 1.Chest pain-somewhat atypical. NO current chest pain. Trop negative x 3 2.Abnl ecg-negative trop x 3 3.Back pain/hip apin 4.Hypothyroid 5.Palpitations Recc: -tele -serial ecg's -Will f/u echo -Pain control -Check TSH to assess current thyroid state Problems: Consultation Date/Type/Reason Admit Date/Time Dec 31, 2016 at 08:57 Initial Consult Date 01/01/2017 Type of Consultation: Cardiology Reason for Consultation Chest pain Referring Provider: GRACE BARKER MD Exam/Review of Systems Vital Signs Vitals Vital Signs Date Time Temp Pulse Resp B/P Pulse Ox O2 Delivery O2 Flow Rate FiO2 01/02/17 09:16 99.9 88 16 126/91 99 01/01/17 16:57 Room Air 01/01/17 08:23 21 12/31/16 09:08 2.0 Intake and Output 01/01/17 01/01/17 01/02/17 15:00 23:00 07:00 Intake Total 650 ml 1450 ml 1200 ml Balance 650 ml 1450 ml 1200 ml Exam Review of Systems: CONSTITUTIONAL: No fevers, chills. PULMONARY: No sob CARDIOVASCULAR: No chest pain/palpitations GASTROINTESTINAL: No nausea/vomiting. GENITOURINARY: No hematuria/dysuria. MUSCULOSKELETAL: C/O back pain PSYCHIATRIC: The patient denies depression. NEUROLOGIC: No weakness Constitutional: alert, oriented Psych: no complaints Head: normocephalic ENMT: mucosa pink and moist Neck: jvd, supple Respiratory: diminished breath sounds Cardiovascular: regular rate and rhythm Gastrointestinal: non-tender, soft Musculoskeletal: muscle tone Extremities: edema (none) Neurological: other (No focal deficits) Results Result Diagram: 01/01/1792401/01/17924 Medications Medications Current Medications Morphine Sulfate (morphine) 2 mg Q4H PRN IV pain Last administered on 10:41; Admin Dose 2 MG; Start 12/31/16 at 11:00 Aspirin (Aspirin) 81 mg DAILY PO Last administered on 01/02/17 08:43; Admin Dose 81 MG; Start 01/01/17 at 09:00 Pantoprazole (Protonix Tab) 40 mg DAILY@06 PO Last administered on 01/02/17 06 :23; Admin Dose 40 MG; Start 12/31/16 at 11:00 Acetaminophen/ Hydrocodone Bitart ([place] (5/325)) 1 tab Q6H PRN PO severe headache Last administered on 01/02/17 08:44; Admin Dose 1 TAB; Start 12/31/16 at 12:00 Ondansetron HCl 4 mg 4 mg Q4H PRN IV NAUSEA AND/OR VOMITING Last administered on 01/01/17 07:47; Admin Dose 4 MG; Start 12/31/16 at 13:00 Sodium Chloride (NS) 1,000 ml @ 50 mls/hr Q20H IV Last administered on 10:50; Admin Dose 50 MLS/HR; Start 12/31/16 at 15:00 Zolpidem Tartrate (Ambien) 5 mg HS PRN PO INSOMNIA Last administered on 21:27; Admin Dose 5 MG; Start 12/31/16 at 23:30 Cyclobenzaprine HCl (Flexeril) 10 mg BID PO Last administered on 01/02/17 08: 44; Admin Dose 10 MG; Start 01/01/17 at 14:00 ANNA KHAN Jan 02, 2017 12:14
[2017-01-02] MEDS ORDERED: NITROGLYCERIN (SL) 0.4 MG TAB SL PRN (12:30)
--- NOTE | 2017-01-02 17:07 | PN ---
Date/Time of Note Date/Time of Note DATE: 01/02/17 TIME: 17:05 Assessment/Plan VTE Prophylaxis VTE Prophylaxis Intervention: other Lines/Catheters IV Catheter Type (from Nrsg): Peripheral IV Assessment/Plan Chief Complaint/Hosp Course 1. ACS. 2. S/p thyroidectomy, pt is on levothyrixine 100 mcg daily 3. Headache, better 4. Hypertension, controlled 5 back pain 6DDD/DJD plan DR SARMIENTO CALLED per cardio pain meds Problems: Subjective 24 Hr Interval Summary Gastrointestinal: no complaints Genitourinary: no complaints Neurologic: other (BACK PAIN) Exam/Review of Systems Vital Signs Vitals Vital Signs Date Time Temp Pulse Resp B/P Pulse Ox O2 Delivery O2 Flow Rate FiO2 01/02/17 16:00 109 01/02/17 12:27 98.4 14 157/79 96 01/01/17 16:57 Room Air 01/01/17 08:23 21 12/31/16 09:08 2.0 Intake and Output 01/01/17 01/01/17 01/02/17 15:00 23:00 07:00 Intake Total 650 ml 1450 ml 1200 ml Balance 650 ml 1450 ml 1200 ml Exam Neck: supple Respiratory: clear to auscultation Cardiovascular: regular rate and rhythm Gastrointestinal: soft Musculoskeletal: nl extremities to inspection Results Result Diagram: 01/01/1792401/01/17924 Medications Medications Current Medications Morphine Sulfate (morphine) 2 mg Q4H PRN IV pain Last administered on 15:51; Admin Dose 2 MG; Start 12/31/16 at 11:00 Aspirin (Aspirin) 81 mg DAILY PO Last administered on 01/02/17 08:43; Admin Dose 81 MG; Start 01/01/17 at 09:00 Pantoprazole (Protonix Tab) 40 mg DAILY@06 PO Last administered on 01/02/17 06 :23; Admin Dose 40 MG; Start 12/31/16 at 11:00 Acetaminophen/ Hydrocodone Bitart ([place] (5/325)) 1 tab Q6H PRN PO severe headache Last administered on 01/02/17 13:21; Admin Dose 1 TAB; Start 12/31/16 at 12:00 Ondansetron HCl 4 mg 4 mg Q4H PRN IV NAUSEA AND/OR VOMITING Last administered on 01/01/17 07:47; Admin Dose 4 MG; Start 12/31/16 at 13:00 Sodium Chloride (NS) 1,000 ml @ 50 mls/hr Q20H IV Last administered on 10:50; Admin Dose 50 MLS/HR; Start 12/31/16 at 15:00 Zolpidem Tartrate (Ambien) 5 mg HS PRN PO INSOMNIA Last administered on 21:27; Admin Dose 5 MG; Start 12/31/16 at 23:30 Cyclobenzaprine HCl (Flexeril) 10 mg BID PO Last administered on 01/02/17 08: 44; Admin Dose 10 MG; Start 01/01/17 at 14:00 Metoprolol Tartrate (Lopressor) 25 mg BID PO ; Start 01/02/17 at 21:00 Nitroglycerin (Nitroglycerin (Sl Tab) 0.4 Mg) 1 tab Q5M PRN SL ANGINA; Start at 12:30 GRACE BARKER MD Jan 02, 2017 17:07
[2017-01-02] MEDS: METOPROLOL 25 MG TAB PO SCH (20:52)
[2017-01-02] MEDS: ZOLPIDEM 5 MG TAB PO PRN (23:14)
[2017-01-03] VITALS (9 sets, daily range): BP systolic 131–165; BP diastolic 71–81; PULSE 60–91; RESP 16–20
[2017-01-03] MEDS: morphine 2 MG INJ IV PRN ×4 (03:49→19:57)
[2017-01-03] MEDS: PANTOPRAZOLE (EC) 40 MG TAB PO SCH (06:00)
[2017-01-03] MEDS: CYCLOBENZAPRINE 10 MG TAB PO SCH ×2 (08:54→19:57)
[2017-01-03] MEDS: ASPIRIN 81 MG TAB PO SCH (08:54)
[2017-01-03] MEDS: METOPROLOL 25 MG TAB PO SCH ×2 (08:55→19:59)
[2017-01-03] MEDS: HYDROCODONE/APAP (5/325) TAB PO PRN ×2 (09:23→17:15)
[2017-01-03] MEDS ORDERED: REGADENOSON 0.4 MG/5 ML SYG ONE (09:45)
--- NOTE | 2017-01-03 10:21 | CONS ---
Date/Time of Note Date/Time of Note DATE: 01/03/17 TIME: 10:19 Assessment/Plan Assessment/Plan Additional Assessment/Plan 1. Chest pain. Patient with recurrent CP report - STRESS TEST TODAY 2. Pain syndrome. The patient with pain syndrome. Her medications have been titrated per primary team. Pain Rx as needed. 3. Thyroid disease. Refer to primary team for evaluation and management. DR. Barker follows. 4. Abnormal EKG. The patient has nonspecific ST-T changes. No evidence of ischemia. No particular treatment is required. 5. Psychiatric illness. Defer to primary team for evaluation. Consultation Date/Type/Reason Admit Date/Time Dec 31, 2016 at 08:57 Type of Consultation: Cardiology Referring Provider: GRACE BARKER MD 24 HR Interval Summary Free Text/Dictation Patient with recurrent CP report - STRESS TEST TODAY ROS: No fever, no chills, no nausea, no vomiting, no diarrhea/constipation No recent weight changes + chest pain, no PND, no orthopnea No dizziness, blurred vision No thirst, no heat or cold intolerance Exam/Review of Systems Vital Signs Vitals Vital Signs Date Time Temp Pulse Resp B/P Pulse Ox O2 Delivery O2 Flow Rate FiO2 01/03/17 08:08 91 01/03/17 07:22 98.4 18 165/71 95 01/01/17 16:57 Room Air 01/01/17 08:23 21 12/31/16 09:08 2.0 Intake and Output 01/02/17 01/02/17 01/03/17 15:00 23:00 07:00 Intake Total 600 ml Balance 600 ml Exam General: WN/WD/NAD, AOx 3 HEENT: Unicetric/atraumatic/EOMI (follow commands) NECK: JVD elevated, no thyromegaly Lymph: no lymphadenopathy HEART: regular with no S3, II/ systolic murmur at apex LUNGS: Coarse sounds ABD: soft, NT, ND, +BS : Intact Neuro: non focal SKIN: chronic changes EXT: trace edema Results Result Diagram: 01/01/1792401/01/17924 Medications Medications Current Medications Morphine Sulfate (morphine) 2 mg Q4H PRN IV pain Last administered on t 07:32; Admin Dose 2 MG; Start 12/31/16 at 11:00 Aspirin (Aspirin) 81 mg DAILY PO Last administered on 01/03/17 08:54; Admin Dose 81 MG; Start 01/01/17 at 09:00 Pantoprazole (Protonix Tab) 40 mg DAILY@06 PO Last administered on 01/02/17 06 :23; Admin Dose 40 MG; Start 12/31/16 at 11:00 Acetaminophen/ Hydrocodone Bitart ([place] (5/325)) 1 tab Q6H PRN PO severe headache Last administered on 01/03/17 09:23; Admin Dose 1 TAB; Start 12/31/16 at 12:00 Ondansetron HCl 4 mg 4 mg Q4H PRN IV NAUSEA AND/OR VOMITING Last administered on 01/01/17 07:47; Admin Dose 4 MG; Start 12/31/16 at 13:00 Sodium Chloride (NS) 1,000 ml @ 50 mls/hr Q20H IV Last administered on 23:14; Admin Dose 50 MLS/HR; Start 12/31/16 at 15:00 Zolpidem Tartrate (Ambien) 5 mg HS PRN PO INSOMNIA Last administered on 23:14; Admin Dose 5 MG; Start 12/31/16 at 23:30 Cyclobenzaprine HCl (Flexeril) 10 mg BID PO Last administered on 01/03/17 08: 54; Admin Dose 10 MG; Start 01/01/17 at 14:00 Metoprolol Tartrate (Lopressor) 25 mg BID PO Last administered on 01/03/17 08: 55; Admin Dose 25 MG; Start 01/02/17 at 21:00 Nitroglycerin (Nitroglycerin (Sl Tab) 0.4 Mg) 1 tab Q5M PRN SL ANGINA; Start at 12:30 RICHIE POWELL MD Jan 03, 2017 10:21
--- NOTE | 2017-01-03 11:16 | ECORPT ---
DATE OF SERVICE: 01/03/2017 LEXISCAN CARDIOLITE STRESS TEST REFERRING PHYSICIAN: Dr. Joy REASON FOR EVALUATION: Chest pain. DESCRIPTION OF THE TEST: The patient was brought into the heart station in a fasting condition. Marcela gruber had a successful Lexiscan injection. She tolerated the injection well. She had some borderline t achycardia with nonspecific ST-T changes. The imaging portion of the report will be dictated [email or web address] [email or web address]. Dictated By: RICHIE POWELL MD ML/CLAY Conf#: [id number] DID#: [id number]
--- NOTE | 2017-01-03 12:28 | RADRPT ---
PROCEDURE: MR Thoracic Spine noncontrast. CLINICAL INDICATION: Back pain. Degenerative changes. TECHNIQUE: Multiplanar multisequence noncontrast MRI of the thoracic spine performed. COMPARISON: There are no similar studies submitted for comparison. FINDINGS: There is preservation of the normal thoracic kyphosis. The vertebral body heights are maintained. There is normal alignment. There is no destructive osseous lesion.There is no abnormal bone marrow edema. There is disk desiccation at T6-C7 with mild disk space narrowing. The spinal cord is normal is signal. T6-T7: There is a 7 mm right paracentral disk protrusion impinging the spinal cord with mild to mode rate spinal canal stenosis. There is no abnormal spinal cord edema. There is no bilateral foramina l stenosis. The paraspinal musculature are within normal limits. There are degenerative changes within the cervical spine which incompletely evaluated. IMPRESSION: 1. Large T6-T7 right paracentral disk protrusion impinging the spinal cord with mild to moderate spi nal canal stenosis. There is no abnormal spinal cord edema. 2. No acute compression fracture or abnormal bone marrow edema. Further findings as detailed above. RPTAT: PP .Jason Pat MD, Date Time Electronically viewed and signed by .Jason Pat MD, on 01/03/2017 12:28 .F/
--- NOTE | 2017-01-03 12:34 | RADRPT ---
PROCEDURE: MRI lumbar spine without contrast. CLINICAL INDICATION: Degenerative disk disease. TECHNIQUE: Multiplanar multi echo imaging is performed to the lower thoracic and lumbosacral spine without contrast. Stacked axial and additional axial images obtained parallel to the disk spaces w ere performed. COMPARISON: No comparison study. FINDINGS: The spinal cord and conus medullaris are normal. Conus medullaris is at L1-2. The neural canal at T12 is normal in size. T12-L1: There are mild degenerative changes in the facets. The neural canal and nerve root foramina are normal. No dorsal disk bulge or herniations identified. L1 is unremarkable. L1-2: The intervertebral disk space, neural canal and nerve root foramina are normal. No disk bulg e or herniations identified. L2 is unremarkable. L2-3: The articular facets are normal. The neural canal and nerve root foramina are normal. The d isk spaces well maintained. Ligamentum flavum are normal. There are dorsal osteophytes off the inf erior endplate of L3. L3-4: A 4.6 mm AP central disk protrusion is present. The neural canal and nerve root foramina are unremarkable. The L4 vertebral body is intact. The neural canal L C4 is normal in size. There ar e minimal degenerative changes in the facets at L3-4. L4-5: A 5.6 mm AP left paracentral disk herniation is present with a small extruded fragment extend ing for a distance of 3.54 meters along the dorsal inferior body of L4. There are degenerative changes in the articular facets. No central canal or nerve root canal stenos is is present. There is ventral spondylosis at L4-5. L5-S1: Intervertebral disk space is relatively well maintained with some dorsal disk space narrowing . There is a dorsal annular tear at L5-S1. No central canal or nerve root canal stenosis is identi fied. The nerve root foramina are patent bilaterally. There are minimal degenerative changes in th e articular facets. The sacrum and SI joints are normal as visualized. IMPRESSION: 1. 4.6 mm AP central disk protrusion at L3-4. 2. 5.6 mm AP left paracentral L4-5 disk herniation with small extruded fragment extending for about 3.55 mm millimeters along the dorsal left inferior body of L4. 3. Osteoarthritis of the lumbar spine. RPTAT: [facility] Greyson Montiel Physician Date Time Electronically viewed and signed by Greyson Montiel Physician on 01/03/2017 12:34 /
--- NOTE | 2017-01-03 12:43 | RADRPT ---
PROCEDURE: Lexiscan myocardial perfusion study CLINICAL INDICATION: 41 -year-old patient complaining of chest pain. TECHNIQUE: Lexiscan 0.4 mg intravenously separate acquisition gated myocardial perfusion SPECT usi ng Tc 99m Myoview 29.4 mCi intravenously at stress and Tc-99m Myoview, 9.2 mCi intravenously at rest was performed using the rest/stress sequence. Poststress Myoview SPECT images were obtained in the supine position. COMPARISON: No prior studies. FINDINGS: Perfusion images reveal no evidence of perfusion defects. Lexiscan post stress gated SPECT images demonstrate no wall motion abnormalities. IMPRESSION: 1. No evidence of perfusion defects. 2. No wall motion abnormalities. 3. The left ventricle ejection fraction at stress is 63%. A call report was made to Dr. Cardoza at 12:42 p.m. on January 03, 2017. RPTAT: HH .Sana Castillo MD, Date Time Electronically viewed and signed by .Sana Castillo MD, on 01/03/2017 12:43 .L/
--- NOTE | 2017-01-03 13:04 | RADRPT ---
PROCEDURE: MR Cervical Spine with and without contrast. CLINICAL INDICATION: Neck pain. TECHNIQUE: Multiplanar multisequence MRI of the cervical spine was performed before and following t he intravenous administration of 10 cc of Magnevist. COMPARISON: There are no similar studies submitted for comparison. FINDINGS: Evaluation is mildly limited due to motion degradation. There is normal cervical lordosis. The vertebral body heights are maintained. There is no destructive osseous lesion.There is no abnormal bone marrow edema. There is disk desiccation from C2-C3 to C6-C7 with mild to moderate C4-C5, mild C5-C6 , and mild to moderate C6-C7 disk space narrowing. The spinal cord is normal in caliber. The spinal cord is normal in signal. There is no abnormal spin al cord enhancement. C2-C3 : There is a 1 mm right paracentral disk protrusion without spinal canal or bilateral foramina l stenosis. C3-C4 : There is a 1 mm circumferential disk osteophyte complex without spinal canal or bilateral fo raminal stenosis. C4-C5 : There is a 1 mm circumferential disk osteophyte complex with dorsal ligamentous hypertrophy at the mid C5 level causing mild to moderate spinal canal stenosis. There is no bilateral foraminal stenosis. C5-C6 : There is 1 mm retrolisthesis with a 2 mm broad-based disk osteophyte complex with 1 mm of in ferior subligamentous migration of disk material contacting the spinal cord with mild to moderate sp inal canal stenosis. There is bilateral uncovertebral hypertrophy causing moderate bilateral forami nal stenosis. C6-C7 : There is a 1 mm circumferential disk osteophyte complex without spinal canal stenosis. Ther e is moderate right and mild left facet arthropathy and bilateral uncovertebral hypertrophy causing moderate left and mild right foraminal stenosis. C7-T1 : There is no disc herniation, spinal canal, or foraminal stenosis. The paravertebral musculature are within normal limits. IMPRESSION: Evaluation is mildly limited due to motion degradation. 1. C4-C5 circumferential disk osteophyte complex with mild to moderate spinal canal stenosis. 2. C5-C6 minimal retrolisthesis with a broad-based disk osteophyte complex with inferior migration with mild to moderate spinal canal stenosis. There is moderate bilateral foraminal stenosis. 3. No abnormal bone marrow edema. 4. No abnormal spinal cord enhancement. Further findings as detailed above. RPTAT: PP .Jason Pat MD, MD Date Time Electronically viewed and signed by .Jason Pat MD, MD on 01/03/2017 13:04 .F/
--- NOTE | 2017-01-03 19:22 | CONS ---
Date/Time of Note Date/Time of Note DATE: 01/03/17 TIME: 19:22 Consultation Date/Type/Reason Admit Date/Time Dec 31, 2016 at 08:57 Hx of Present Illness neurology consultation for lower back pain patient unavailable on two attempts this morning was completing other studies will follow up again tomorrow Eyes: no complaints ENT: no complaints Respiratory: no complaints Cardiovascular: no complaints Gastrointestinal: no complaints Genitourinary: no complaints Musculoskeletal: back pain (+) Skin: no complaints Neurologic: other (BACK PAIN) Lymphatic: no complaints Psychological: no complaints Past Medical History Medical History: cancer (hs of thyroid cancer), hypertension, other (frequent headaches) Past Surgical History Past Surgical Hx: other (thyroidoectomy) Social History Alcohol Use: occasionally Smoking Status: Current every day smoker Drug Use: none Exam/Review of Systems Vital Signs Vitals Vital Signs Date Time Temp Pulse Resp B/P Pulse Ox O2 Delivery O2 Flow Rate FiO2 01/03/17 16:30 73 01/03/17 15:28 98.7 20 141/80 97 01/01/17 16:57 Room Air 01/01/17 08:23 21 12/31/16 09:08 2.0 Intake and Output 01/02/17 01/02/17 01/03/17 15:00 23:00 07:00 Intake Total 600 ml Balance 600 ml Results Result Diagram: 01/01/1725 01/01/17 0925 Medications Medications Current Medications Morphine Sulfate (morphine) 2 mg Q4H PRN IV pain Last administered on 14:07; Admin Dose 2 MG; Start 12/31/16 at 11:00 Aspirin (Aspirin) 81 mg DAILY PO Last administered on 01/03/17 08:54; Admin Dose 81 MG; Start 01/01/17 at 09:00 Pantoprazole (Protonix Tab) 40 mg DAILY@06 PO Last administered on 01/02/17 06 :23; Admin Dose 40 MG; Start 12/31/16 at 11:00 Acetaminophen/ Hydrocodone Bitart ([place] (5/325)) 1 tab Q6H PRN PO severe headache Last administered on 01/03/17 17:15; Admin Dose 1 TAB; Start 12/31/16 at 12:00 Ondansetron HCl 4 mg 4 mg Q4H PRN IV NAUSEA AND/OR VOMITING Last administered on 01/01/17 07:47; Admin Dose 4 MG; Start 12/31/16 at 13:00 Sodium Chloride (NS) 1,000 ml @ 50 mls/hr Q20H IV Last administered on 23:14; Admin Dose 50 MLS/HR; Start 12/31/16 at 15:00 Zolpidem Tartrate (Ambien) 5 mg HS PRN PO INSOMNIA Last administered on 23:14; Admin Dose 5 MG; Start 12/31/16 at 23:30 Cyclobenzaprine HCl (Flexeril) 10 mg BID PO Last administered on 01/03/17 08: 54; Admin Dose 10 MG; Start 01/01/17 at 14:00 Metoprolol Tartrate (Lopressor) 25 mg BID PO Last administered on 01/03/17 08: 55; Admin Dose 25 MG; Start 01/02/17 at 21:00 Nitroglycerin (Nitroglycerin (Sl Tab) 0.4 Mg) 1 tab Q5M PRN SL ANGINA; Start at 12:30 TK LAWSON MD Jan 03, 2017 19:22
--- NOTE | 2017-01-03 22:40 | PN ---
Date/Time of Note Date/Time of Note DATE: 01/03/17 TIME: 22:39 Assessment/Plan VTE Prophylaxis VTE Prophylaxis Intervention: other Lines/Catheters IV Catheter Type (from Nrsg): Saline Lock Assessment/Plan Chief Complaint/Hosp Course 1. ACS. 2. S/p thyroidectomy, pt is on levothyrixine 100 mcg daily 3. Headache, better 4. Hypertension, controlled 5 back pain 6DDD/DJD plan DR SARMIENTO CALLED per cardio pain meds Problems: Subjective 24 Hr Interval Summary Cardiovascular: no complaints Musculoskeletal: other (back pain neurosurgery pending) Exam/Review of Systems Vital Signs Vitals Vital Signs Date Time Temp Pulse Resp B/P Pulse Ox O2 Delivery O2 Flow Rate FiO2 01/03/17 20:08 60 01/03/17 15:28 98.7 20 141/80 97 01/01/17 16:57 Room Air 01/01/17 08:23 21 12/31/16 09:08 2.0 Intake and Output 01/02/17 01/02/17 01/03/17 15:00 23:00 07:00 Intake Total 600 ml Balance 600 ml Exam Respiratory: clear to auscultation Cardiovascular: regular rate and rhythm Gastrointestinal: soft Musculoskeletal: nl extremities to inspection Extremities: normal pulses Neurological: other (back pain) Results Result Diagram: 01/01/1792401/01/17924 Medications Medications Current Medications Morphine Sulfate (morphine) 2 mg Q4H PRN IV pain Last administered on 19:57; Admin Dose 2 MG; Start 12/31/16 at 11:00 Aspirin (Aspirin) 81 mg DAILY PO Last administered on 01/03/17 08:54; Admin Dose 81 MG; Start 01/01/17 at 09:00 Pantoprazole (Protonix Tab) 40 mg DAILY@06 PO Last administered on 01/02/17 06 :23; Admin Dose 40 MG; Start 12/31/16 at 11:00 Acetaminophen/ Hydrocodone Bitart ([place] (5/325)) 1 tab Q6H PRN PO severe headache Last administered on 01/03/17 17:15; Admin Dose 1 TAB; Start 12/31/16 at 12:00 Ondansetron HCl 4 mg 4 mg Q4H PRN IV NAUSEA AND/OR VOMITING Last administered on 3/19/17at 07:47; Admin Dose 4 MG; Start 12/31/16 at 13:00 Sodium Chloride (NS) 1,000 ml @ 50 mls/hr Q20H IV Last administered on 23:14; Admin Dose 50 MLS/HR; Start 12/31/16 at 15:00 Zolpidem Tartrate (Ambien) 5 mg HS PRN PO INSOMNIA Last administered on 23:14; Admin Dose 5 MG; Start 12/31/16 at 23:30 Cyclobenzaprine HCl (Flexeril) 10 mg BID PO Last administered on 01/03/17 19: 57; Admin Dose 10 MG; Start 01/01/17 at 14:00 Metoprolol Tartrate (Lopressor) 25 mg BID PO Last administered on 01/03/17 19: 59; Admin Dose 25 MG; Start 01/02/17 at 21:00 Nitroglycerin (Nitroglycerin (Sl Tab) 0.4 Mg) 1 tab Q5M PRN SL ANGINA; Start at 12:30 GRCAE BARKER MD Jan 03, 2017 22:40
[2017-01-03] MEDS: SOD CHLORIDE 0.9% 1,000 ML IV SCH (23:56)
[2017-01-03] MEDS: ZOLPIDEM 5 MG TAB PO PRN (23:57)
[2017-01-04] VITALS (11 sets, daily range): BP systolic 114–146; BP diastolic 72–91; PULSE 80–96; RESP 18–20
[2017-01-04] MEDS: HYDROCODONE/APAP (5/325) TAB PO PRN ×3 (00:57→17:13)
[2017-01-04] MEDS: morphine 2 MG INJ IV PRN ×6 (04:36→23:48)
[2017-01-04] MEDS: ONDANSETRON 4 MG INJ IV PRN (04:38)
[2017-01-04] MEDS: PANTOPRAZOLE (EC) 40 MG TAB PO SCH (06:50)
[2017-01-04] MEDS: METOPROLOL 25 MG TAB PO SCH ×2 (08:16→20:07)
[2017-01-04] MEDS: ASPIRIN 81 MG TAB PO SCH (08:16)
[2017-01-04] MEDS: CYCLOBENZAPRINE 10 MG TAB PO SCH ×2 (08:16→20:06)
--- NOTE | 2017-01-04 10:26 | CONS ---
Date/Time of Note Date/Time of Note DATE: 01/04/17 TIME: 10:24 Assessment/Plan Assessment/Plan Chief Complaint/Hosp Course Imp: 1.Chest pain-somewhat atypical. NO current chest pain. Trop negative x 3. Lexiscan negative for ischemia 2.Abnl ecg-negative trop x 3 3.Back pain/hip apin 4.Hypothyroid 5.Palpitations Recc: -tele -Continue BB -Contineu asa -Pain control -Check TSH to assess current thyroid state Problems: Consultation Date/Type/Reason Admit Date/Time Dec 31, 2016 at 08:57 Initial Consult Date 01/01/2017 Type of Consultation: Cardiology Reason for Consultation Chest pain Referring Provider: GRACE BARKER MD Exam/Review of Systems Vital Signs Vitals Vital Signs Date Time Temp Pulse Resp B/P Pulse Ox O2 Delivery O2 Flow Rate FiO2 01/04/17 08:11 96 01/04/17 07:42 98.9 20 128/80 95 01/01/17 16:57 Room Air 01/01/17 08:23 21 12/31/16 09:08 2.0 Intake and Output 01/03/17 01/03/17 01/04/17 15:00 23:00 07:00 Intake Total 800 ml 490 ml 975 ml Balance 800 ml 490 ml 975 ml Exam Review of Systems: CONSTITUTIONAL: No fevers, chills. PULMONARY: No sob CARDIOVASCULAR: No chest pain/palpitations GASTROINTESTINAL: No nausea/vomiting. GENITOURINARY: No hematuria/dysuria. MUSCULOSKELETAL: C/O back pain PSYCHIATRIC: The patient denies depression. NEUROLOGIC: No weakness Constitutional: alert, oriented Psych: no complaints Head: normocephalic ENMT: mucosa pink and moist Neck: jvd (8 cm water), supple Respiratory: clear to auscultation Cardiovascular: regular rate and rhythm Gastrointestinal: non-tender, soft Musculoskeletal: muscle tone (normal) Extremities: edema (none) Neurological: other Results Result Diagram: 01/01/1792401/01/17924 Medications Medications Current Medications Morphine Sulfate (morphine) 2 mg Q4H PRN IV pain Last administered on 04:36; Admin Dose 2 MG; Start 12/31/16 at 11:00 Aspirin (Aspirin) 81 mg DAILY PO Last administered on 01/04/17 08:16; Admin Dose 81 MG; Start 01/01/17 at 09:00 Pantoprazole (Protonix Tab) 40 mg DAILY@06 PO Last administered on 01/04/17 06 :50; Admin Dose 40 MG; Start 12/31/16 at 11:00 Acetaminophen/ Hydrocodone Bitart ([place] (5/325)) 1 tab Q6H PRN PO severe headache Last administered on 01/04/17 08:16; Admin Dose 1 TAB; Start 12/31/16 at 12:00 Ondansetron HCl 4 mg 4 mg Q4H PRN IV NAUSEA AND/OR VOMITING Last administered on 01/04/17 04:38; Admin Dose 4 MG; Start 12/31/16 at 13:00 Sodium Chloride (NS) 1,000 ml @ 50 mls/hr Q20H IV Last administered on 23:56; Admin Dose 50 MLS/HR; Start 12/31/16 at 15:00 Zolpidem Tartrate (Ambien) 5 mg HS PRN PO INSOMNIA Last administered on 23:57; Admin Dose 5 MG; Start 12/31/16 at 23:30 Cyclobenzaprine HCl (Flexeril) 10 mg BID PO Last administered on 01/04/17 08: 16; Admin Dose 10 MG; Start 01/01/17 at 14:00 Metoprolol Tartrate (Lopressor) 25 mg BID PO Last administered on 01/04/17 08: 16; Admin Dose 25 MG; Start 01/02/17 at 21:00 Nitroglycerin (Nitroglycerin (Sl Tab) 0.4 Mg) 1 tab Q5M PRN SL ANGINA; Start at 12:30 ANNA KHAN Jan 04, 2017 10:26
[2017-01-04] MEDS ORDERED: LIDOCAINE 5% PATCH TD ONE (13:00)
--- NOTE | 2017-01-04 13:06 | CONS ---
Date/Time of Note Date/Time of Note DATE: 01/04/17 TIME: 12:48 Assessment/Plan Assessment/Plan Chief Complaint/Hosp Course 41 year old female active smoker, HTN, HLD, thyroidectomy p/w severe lower back pain and LLE weakness. She received MRI Cervical, Thoracic, and Lumbar Spine for further evaluation. MRI C Spine: C4-5 disc osteophyte complex with mild to moderate spinal canal stenosis. C5-C6 mild to moderate stenosis, no cord signal abnormality. MRI Thoracic Spine T6-T7 right paracentral disc protrusion impinging the spinal cord with mild to moderate spinal canal stenosis, no abnormal cord edema, no fractures. MRI Lumbar Spine L3-4 disc protrusion, L4-5 disc herniation with fragment extending along dorsal left inferior body L4 like causing her symptoms. Recommendations: -patient is requesting increase in pain meds and anxiolytic medications, i doubt that neuropathic pain meds will alleviate her symptoms at this time trial of Lidocaine patch in lower back region may provide temporary relief -her examination is limited by severe pain shows no sign of cord compression, however she may benefit from Spine consultation and pain management evaluation. -PT evaluation Problems: Consultation Date/Type/Reason Admit Date/Time Dec 31, 2016 at 08:57 Date of Consultation: Jan 04, 2017 Type of Consultation: Neurology Reason for Consultation evaluation of LE weakness and back pain Referring Provider: GRACE BARKER MD Hx of Present Illness 41 year old female chronic active smoker, history of HTN, HLD, thyroid disease presenting to the hospital for severe pain in her lower back region with weakness in left lower extremity. She reports symptoms began over the weekend, she denies any strenuous activity or trauma, was watching her grandchildren. Pain was so severe in her lower back she was unable to ambulate, became frustrated with the pain and began having atypical chest pain and vomiting. She took norco at home with no improvement in symptoms. She denies any urinary incontinence, no bowel incontinence, no saddle anesthesia. She has had back pain going for about 2 months but has never experienced pain this severe. Her symptoms are persistent despite receiving toradol in the ER, morphine, norco, and flexeril. lower back pain left lower extremity weakness Eyes: no complaints ENT: no complaints Respiratory: no complaints Cardiovascular: no complaints Gastrointestinal: no complaints Genitourinary: no complaints Musculoskeletal: other (back pain neurosurgery pending) Skin: no complaints Neurologic: other (BACK PAIN) Lymphatic: no complaints Psychological: no complaints Past Medical History Medical History: cancer (hs of thyroid cancer), hypertension, other (frequent headaches) Past Surgical History Past Surgical Hx: other (thyroidoectomy) Social History Alcohol Use: occasionally Smoking Status: Current every day smoker Drug Use: none Exam/Review of Systems Vital Signs Vitals Vital Signs Date Time Temp Pulse Resp B/P Pulse Ox O2 Delivery O2 Flow Rate FiO2 01/04/17 12:10 89 01/04/17 11:58 98.9 20 118/72 99 01/01/17 16:57 Room Air 01/01/17 08:23 21 12/31/16 09:08 2.0 Intake and Output 01/03/17 01/03/17 01/04/17 15:00 23:00 07:00 Intake Total 800 ml 490 ml 975 ml Balance 800 ml 490 ml 975 ml Exam awake and alert oriented x3 anxious no aphasia CN: ZAKIA, VFF, EOMI no nystagmus V1-3 intact, no facial asymmetry palate upgoing uvula midline scm/trap intact tongue midline Motor: 5/5 UE normal bulk, tone LE limited by severe pain, left lower extremity strength 4-/5 gip flexion/ extension, knee flexion and extension, DF/PF is 5/5 limited by pain Right LE 5/5 Sensory increased sensitivity to light touch, pin prick and vibratory sensation patient reports pain everywhere in her LE Reflexes 2+ biceps and triceps, KJ and AJ toes are downgoing gait stands on side of the bed, refuses to attempt to ambulate Results Result Diagram: 01/01/1792401/01/17924 Medications Medications Current Medications Morphine Sulfate (morphine) 2 mg Q4H PRN IV pain Last administered on 10:45; Admin Dose 2 MG; Start 12/31/16 at 11:00 Aspirin (Aspirin) 81 mg DAILY PO Last administered on 01/04/17 08:16; Admin Dose 81 MG; Start 01/01/17 at 09:00 Pantoprazole (Protonix Tab) 40 mg DAILY@06 PO Last administered on 01/04/17 06 :50; Admin Dose 40 MG; Start 12/31/16 at 11:00 Acetaminophen/ Hydrocodone Bitart ([place] (5/325)) 1 tab Q6H PRN PO severe headache Last administered on 01/04/17 08:16; Admin Dose 1 TAB; Start 12/31/16 at 12:00 Ondansetron HCl 4 mg 4 mg Q4H PRN IV NAUSEA AND/OR VOMITING Last administered on 01/04/17 04:38; Admin Dose 4 MG; Start 12/31/16 at 13:00 Sodium Chloride (NS) 1,000 ml @ 50 mls/hr Q20H IV Last administered on 23:56; Admin Dose 50 MLS/HR; Start 12/31/16 at 15:00 Zolpidem Tartrate (Ambien) 5 mg HS PRN PO INSOMNIA Last administered on 23:57; Admin Dose 5 MG; Start 12/31/16 at 23:30 Cyclobenzaprine HCl (Flexeril) 10 mg BID PO Last administered on 01/04/17 08: 16; Admin Dose 10 MG; Start 01/01/17 at 14:00 Metoprolol Tartrate (Lopressor) 25 mg BID PO Last administered on 01/04/17 08: 16; Admin Dose 25 MG; Start 01/02/17 at 21:00 Nitroglycerin (Nitroglycerin (Sl Tab) 0.4 Mg) 1 tab Q5M PRN SL ANGINA; Start at 12:30 TK LAWSON MD Jan 04, 2017 13:00
[2017-01-04] MEDS: SOD CHLORIDE 0.9% 1,000 ML IV SCH (17:15)
--- NOTE | 2017-01-04 23:43 | PN ---
Date/Time of Note Date/Time of Note DATE: 01/04/17 TIME: 23:42 Assessment/Plan VTE Prophylaxis VTE Prophylaxis Intervention: other Lines/Catheters IV Catheter Type (from Nrsg): Peripheral IV Assessment/Plan Chief Complaint/Hosp Course 1. ACS. 2. S/p thyroidectomy, pt is on levothyrixine 100 mcg daily 3. Headache, better 4. Hypertension, controlled 5 back pain 6DDD/DJD plan DR CANSECO CALLED per cardio pain meds per neuro Problems: Subjective 24 Hr Interval Summary Subjective hx not possible: other (back pain+ left message w dr canseco) Exam/Review of Systems Vital Signs Vitals Vital Signs Date Time Temp Pulse Resp B/P Pulse Ox O2 Delivery O2 Flow Rate FiO2 01/04/17 20:02 98.4 93 20 137/75 98 01/01/17 16:57 Room Air 01/01/17 08:23 21 12/31/16 09:08 2.0 Intake and Output 01/03/17 01/03/17 01/04/17 15:00 23:00 07:00 Intake Total 800 ml 490 ml 975 ml Balance 800 ml 490 ml 975 ml Exam Respiratory: clear to auscultation Cardiovascular: regular rate and rhythm Gastrointestinal: soft Musculoskeletal: nl extremities to inspection Extremities: normal pulses Neurological: numbness (left side per pt legs) Results Result Diagram: 01/01/1792401/01/17924 Medications Medications Current Medications Morphine Sulfate (morphine) 2 mg Q4H PRN IV pain Last administered on 20:06; Admin Dose 2 MG; Start 12/31/16 at 11:00 Aspirin (Aspirin) 81 mg DAILY PO Last administered on 01/04/17 08:16; Admin Dose 81 MG; Start 01/01/17 at 09:00 Pantoprazole (Protonix Tab) 40 mg DAILY@06 PO Last administered on 01/04/17 06 :50; Admin Dose 40 MG; Start 12/31/16 at 11:00 Acetaminophen/ Hydrocodone Bitart ([place] (5/325)) 1 tab Q6H PRN PO severe headache Last administered on 01/04/17 17:13; Admin Dose 1 TAB; Start 12/31/16 at 12:00 Ondansetron HCl 4 mg 4 mg Q4H PRN IV NAUSEA AND/OR VOMITING Last administered on 01/04/17 04:38; Admin Dose 4 MG; Start 12/31/16 at 13:00 Sodium Chloride (NS) 1,000 ml @ 50 mls/hr Q20H IV Last administered on 17:15; Admin Dose 50 MLS/HR; Start 12/31/16 at 15:00 Zolpidem Tartrate (Ambien) 5 mg HS PRN PO INSOMNIA Last administered on 23:57; Admin Dose 5 MG; Start 12/31/16 at 23:30 Cyclobenzaprine HCl (Flexeril) 10 mg BID PO Last administered on 01/04/17 20: 06; Admin Dose 10 MG; Start 01/01/17 at 14:00 Metoprolol Tartrate (Lopressor) 25 mg BID PO Last administered on 01/04/17 20: 07; Admin Dose 25 MG; Start 01/02/17 at 21:00 Nitroglycerin (Nitroglycerin (Sl Tab) 0.4 Mg) 1 tab Q5M PRN SL ANGINA; Start at 12:30 GRACE BARKER MD Jan 04, 2017 23:43
[2017-01-04] MEDS: ZOLPIDEM 5 MG TAB PO PRN (23:48)
[2017-01-05] MEDS: PANTOPRAZOLE (EC) 40 MG TAB PO SCH (06:26)
[2017-01-05] MEDS: morphine 2 MG INJ IV PRN ×5 (06:26→23:14)
--- NOTE | 2017-01-05 07:23 | CONS ---
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 The patient has imaging and exam findings c/w complaint of left radicular pain. I do not think that this patient has a motor or sensory deficit related to this HNP, rather she has weakness that appears to be predominantly pain-related. We discussed her options including microdiskectomy vs. conservative treatment. In general, I advised the patient that acute disk herniation and radiculopathy may be expected to improve with medical/ conservative treatments in the majority of cases within three months. She expressed a strong preference to avoid surgery if at all possible. Therefore I recommend 1) a short course of oral streroid; 2) selective nerve root injection left L5 nerve root; 3) PT eval ; 4) pain service/ physiatry consult for pain control. After discharge she should follow up with her pain doctor and re-present for surgical evaluation should conservative treatments be deemed ineffective. Finally, the patient has a calcified thoracic disk herniation effacing the cord on the right with no cord signal change. There is nothing in the patient's history to suggest that this is symptomatic. I believe it is an incidental (and chronic) finding and not relevant to her current presentation. Thank you very much for the opportunity to participate in this patient's care. Consultation Date/Type/Reason Admit Date/Time Dec 31, 2016 at 08:57 Date of Consultation: Jan 05, 2017 Type of Consultation: neurosurgery Reason for Consultation left leg pain and L4-5 HNP Hx of Present Illness Patient is 41 year old female who presents with 5 day history of severe sudden onset of left lower extremity and low back pain unrelieved by medication and exacerbated by any movement whatsoever. Pain radiates from back to left LE along dorsal surface of leg; she also complains of left lower extremity numbness involving the ENTIRE left lower extremity that is intermittent. She is unable to ambulate. She denies and bowel or bladder complaints. She has minimal right sided discomfort. MRI of the entire spine was performed and shows two principal abnormalities/ findings: 1) thoracic calcified disc and 2) L4-5 HNP with fragment effacing the L5 nerve root on the left. The complete review of systems has been reviewed and is incorporated by reference herein. Eyes: no complaints ENT: no complaints Respiratory: no complaints Cardiovascular: no complaints Gastrointestinal: no complaints Genitourinary: no complaints Musculoskeletal: other (back pain neurosurgery pending) Skin: no complaints Neurologic: other (BACK PAIN) Lymphatic: no complaints Psychological: no complaints Past Medical History Medical History: cancer (hs of thyroid cancer), hypertension, other (frequent headaches) Past Surgical History Past Surgical Hx: other (thyroidoectomy) Social History Alcohol Use: occasionally Smoking Status: Current every day smoker Drug Use: none Exam/Review of Systems Vital Signs Vitals Vital Signs Date Time Temp Pulse Resp B/P Pulse Ox O2 Delivery O2 Flow Rate FiO2 01/04/17 20:02 98.4 93 20 137/75 98 01/01/17 16:57 Room Air 01/01/17 08:23 21 Intake and Output 01/04/17 01/04/17 01/05/17 15:00 23:00 07:00 Intake Total 1200 ml 1700 ml Balance 1200 ml 1700 ml Exam Constitutional: alert, oriented, well developed Psych: nl mood/affect, no complaints Head: atraumatic, normocephalic Eyes: EOMI, nl conjunctiva, nl lids, nl sclera ENMT: mucosa pink and moist, nl external ears & nose, nl lips & teeth Neck: non-tender, supple Cardiovascular: regular rate and rhythm Musculoskeletal: nl extremities to inspection Extremities: normal pulses Neurological: EN[employer]MENT[employer]OURCE [employer] II-XII intact, nl mental status, nl speech, nl strength Skin: nl turgor Additional Comments ON neurologic examination the patient has grossly diminished voluntary strength on the entire left lower extremity on provocative testing, including 1-2 quadriceps, TA, gracilis, and EHL, that appears to be pain-limited or 'give-way ' weakness. However, she exhibits spontaneous movement of the left lower extremity that is at least anti-gravity and possibly full strength bilaterally. Straight leg raise on the left is positive. Results Result Diagram: 01/01/1792401/01/17924 Medications Medications Current Medications Morphine Sulfate (morphine) 2 mg Q4H PRN IV pain Last administered on 06:26; Admin Dose 2 MG; Start 12/31/16 at 11:00 Aspirin (Aspirin) 81 mg DAILY PO Last administered on 01/04/17 08:16; Admin Dose 81 MG; Start 01/01/17 at 09:00 Pantoprazole (Protonix Tab) 40 mg DAILY@06 PO Last administered on 01/05/17 06 :26; Admin Dose 40 MG; Start 12/31/16 at 11:00 Acetaminophen/ Hydrocodone Bitart ([place] (5/325)) 1 tab Q6H PRN PO severe headache Last administered on 01/04/17 17:13; Admin Dose 1 TAB; Start 12/31/16 at 12:00 Ondansetron HCl 4 mg 4 mg Q4H PRN IV NAUSEA AND/OR VOMITING Last administered on 01/04/17 04:38; Admin Dose 4 MG; Start 12/31/16 at 13:00 Sodium Chloride (NS) 1,000 ml @ 50 mls/hr Q20H IV Last administered on 17:15; Admin Dose 50 MLS/HR; Start 12/31/16 at 15:00 Zolpidem Tartrate (Ambien) 5 mg HS PRN PO INSOMNIA Last administered on 23:48; Admin Dose 5 MG; Start 12/31/16 at 23:30 Cyclobenzaprine HCl (Flexeril) 10 mg BID PO Last administered on 01/04/17 20: 06; Admin Dose 10 MG; Start 01/01/17 at 14:00 Metoprolol Tartrate (Lopressor) 25 mg BID PO Last administered on 01/04/17 20: 07; Admin Dose 25 MG; Start 01/02/17 at 21:00 Nitroglycerin (Nitroglycerin (Sl Tab) 0.4 Mg) 1 tab Q5M PRN SL ANGINA; Start at 12:30 SREE LEVIN MD Jan 05, 2017 07:14
[2017-01-05 07:55] VITALS: BP 125/84; RESP 18
[2017-01-05] MEDS: ASPIRIN 81 MG TAB PO SCH (09:22)
[2017-01-05] MEDS: CYCLOBENZAPRINE 10 MG TAB PO SCH ×2 (09:22→21:58)
[2017-01-05] MEDS: METOPROLOL 25 MG TAB PO SCH ×2 (09:23→22:20)
[2017-01-05] MEDS: HYDROCODONE/APAP (5/325) TAB PO PRN ×3 (09:25→22:03)
[2017-01-05 11:49] VITALS: BP_SYST 123; RESP 18
--- NOTE | 2017-01-05 13:05 | CONS ---
Date/Time of Note Date/Time of Note DATE: 01/05/17 TIME: 13:02 Assessment/Plan Assessment/Plan Chief Complaint/Hosp Course Imp: 1.Chest pain-somewhat atypical. NO current chest pain. Trop negative x 3. Lexiscan negative for ischemia 2.Abnl ecg-negative trop x 3 3.Back pain/hip apin 4.Hypothyroid 5.Palpitations Recc: -tele -Continue BB -Continue asa -Pain control -check TSH -s/p neuro and NRSG consult with reccs for steroid injection Problems: Consultation Date/Type/Reason Admit Date/Time Dec 31, 2016 at 08:57 Initial Consult Date 01/01/2017 Type of Consultation: Cardiology Reason for Consultation Chest pain Referring Provider: GRACE BARKER MD Exam/Review of Systems Vital Signs Vitals Vital Signs Date Time Temp Pulse Resp B/P Pulse Ox O2 Delivery O2 Flow Rate FiO2 01/05/17 11:49 98.0 78 18 123/ 98 01/01/17 16:57 Room Air 01/01/17 08:23 21 Intake and Output 01/04/17 01/04/17 01/05/17 14:59 22:59 06:59 Intake Total 1200 ml 1700 ml Balance 1200 ml 1700 ml Exam Review of Systems: CONSTITUTIONAL: No fevers, chills. PULMONARY: No sob CARDIOVASCULAR: No chest pain/palpitations GASTROINTESTINAL: No nausea/vomiting. GENITOURINARY: No hematuria/dysuria. MUSCULOSKELETAL: c/o back pain PSYCHIATRIC: The patient denies depression. NEUROLOGIC: No weakness Constitutional: alert Psych: no complaints Head: normocephalic ENMT: mucosa pink and moist Neck: jvd (9 cm water), supple Respiratory: clear to auscultation Cardiovascular: regular rate and rhythm Gastrointestinal: non-tender, soft Musculoskeletal: muscle tone (normal) Extremities: edema (none) Neurological: other (No focal deficits) Results Result Diagram: 01/01/1792401/01/17924 Medications Medications Current Medications Morphine Sulfate (morphine) 2 mg Q4H PRN IV pain Last administered on 11:11; Admin Dose 2 MG; Start 12/31/16 at 11:00 Aspirin (Aspirin) 81 mg DAILY PO Last administered on 01/05/17 09:22; Admin Dose 81 MG; Start 01/01/17 at 09:00 Pantoprazole (Protonix Tab) 40 mg DAILY@06 PO Last administered on 01/05/17 06 :26; Admin Dose 40 MG; Start 12/31/16 at 11:00 Acetaminophen/ Hydrocodone Bitart ([place] (5/325)) 1 tab Q6H PRN PO severe headache Last administered on 01/05/17 09:25; Admin Dose 1 TAB; Start 12/31/16 at 12:00 Ondansetron HCl 4 mg 4 mg Q4H PRN IV NAUSEA AND/OR VOMITING Last administered on 01/04/17 04:38; Admin Dose 4 MG; Start 12/31/16 at 13:00 Sodium Chloride (NS) 1,000 ml @ 50 mls/hr Q20H IV Last administered on 17:15; Admin Dose 50 MLS/HR; Start 12/31/16 at 15:00 Zolpidem Tartrate (Ambien) 5 mg HS PRN PO INSOMNIA Last administered on 23:48; Admin Dose 5 MG; Start 12/31/16 at 23:30 Cyclobenzaprine HCl (Flexeril) 10 mg BID PO Last administered on 01/05/17 09: 22; Admin Dose 10 MG; Start 01/01/17 at 14:00 Metoprolol Tartrate (Lopressor) 25 mg BID PO Last administered on 01/05/17 09: 23; Admin Dose 25 MG; Start 01/02/17 at 21:00 Nitroglycerin (Nitroglycerin (Sl Tab) 0.4 Mg) 1 tab Q5M PRN SL ANGINA; Start at 12:30 ANNA KHAN Jan 05, 2017 13:04
[2017-01-05] MEDS: SOD CHLORIDE 0.9% 1,000 ML IV SCH ×2 (15:00→18:57)
[2017-01-05 15:38] VITALS: BP 125/72; RESP 18
[2017-01-05 19:05] VITALS: BP 125/77; RESP 16
[2017-01-05] MEDS: ZOLPIDEM 5 MG TAB PO PRN (22:03)
--- NOTE | 2017-01-05 22:44 | PN ---
Date/Time of Note Date/Time of Note DATE: 01/05/17 TIME: 22:42 Assessment/Plan VTE Prophylaxis VTE Prophylaxis Intervention: other Lines/Catheters IV Catheter Type (from Nrsg): Peripheral IV Assessment/Plan Chief Complaint/Hosp Course 1. ACS. 2. S/p thyroidectomy, pt is on levothyrixine 100 mcg daily 3. Headache, better 4. Hypertension, controlled 5 back pain 6DDD/DJD plan per surgery per cardio pain meds per neuro medrol dose pack Problems: Subjective 24 Hr Interval Summary Gastrointestinal: no complaints Musculoskeletal: back pain (+) Neurologic: other Exam/Review of Systems Vital Signs Vitals Vital Signs Date Time Temp Pulse Resp B/P Pulse Ox O2 Delivery O2 Flow Rate FiO2 01/05/17 19:05 98.6 83 16 125/77 99 01/01/17 16:57 Room Air 01/01/17 08:23 21 Intake and Output 01/04/17 01/04/17 01/05/17 15:00 23:00 07:00 Intake Total 1200 ml 1700 ml Balance 1200 ml 1700 ml Exam Respiratory: clear to auscultation Cardiovascular: regular rate and rhythm Gastrointestinal: soft Extremities: normal pulses Neurological: other Results Result Diagram: 01/01/1725 01/01/17 0925 Results 24 hrs Laboratory Tests Test 01/05/17 13:55 Thyroid Stimulating Hormone (TSH) 5.750 H Medications Medications Current Medications Aspirin (Aspirin) 81 mg DAILY PO Last administered on 01/05/17 09:22; Admin Dose 81 MG; Start 01/01/17 at 09:00 Pantoprazole (Protonix Tab) 40 mg DAILY@06 PO Last administered on 01/05/17 06 :26; Admin Dose 40 MG; Start 12/31/16 at 11:00 Acetaminophen/ Hydrocodone Bitart ([place] (5/325)) 1 tab Q6H PRN PO severe headache Last administered on 01/05/17 22:03; Admin Dose 1 TAB; Start 12/31/16 at 12:00 Ondansetron HCl 4 mg 4 mg Q4H PRN IV NAUSEA AND/OR VOMITING Last administered on 01/04/17 04:38; Admin Dose 4 MG; Start 12/31/16 at 13:00 Sodium Chloride (NS) 1,000 ml @ 50 mls/hr Q20H IV Last administered on 18:57; Admin Dose 50 MLS/HR; Start 12/31/16 at 15:00 Zolpidem Tartrate (Ambien) 5 mg HS PRN PO INSOMNIA Last administered on 22:03; Admin Dose 5 MG; Start 12/31/16 at 23:30 Cyclobenzaprine HCl (Flexeril) 10 mg BID PO Last administered on 01/05/17 21: 58; Admin Dose 10 MG; Start 01/01/17 at 14:00 Metoprolol Tartrate (Lopressor) 25 mg BID PO Last administered on 01/05/17 09: 23; Admin Dose 25 MG; Start 01/02/17 at 21:00 Nitroglycerin (Nitroglycerin (Sl Tab) 0.4 Mg) 1 tab Q5M PRN SL ANGINA; Start at 12:30 Morphine Sulfate (morphine) 3 mg Q4H PRN IV pain Last administered on 19:04; Admin Dose 3 MG; Start 01/05/17 at 19:00 GRACE BARKER MD Jan 05, 2017 22:44
[2017-01-05] MEDS ORDERED: METHYLPREDNISOLONE (MEDROL) DOSE PACK PO ONE (23:00)
[2017-01-05] MEDS ORDERED: METHYLPREDNISOLONE 4 MG TAB PO SCH (23:00)
[2017-01-05 23:51] VITALS: BP 125/86; RESP 16
[2017-01-06] MEDS ORDERED: ALBUTEROL 0.083% (NEB) 2.5 MG/3 ML AMP NEB PRN
[2017-01-06] MEDS: morphine 2 MG INJ IV PRN ×3 (05:23→14:39)
[2017-01-06] MEDS: PANTOPRAZOLE (EC) 40 MG TAB PO SCH (06:25)
[2017-01-06] MEDS ORDERED: LEVOTHYROXINE 100 MCG TAB PO SCH (07:00)
[2017-01-06] MEDS ORDERED: METHYLPREDNISOLONE 4 MG TAB PO SCH ×3 (07:25→21:00)
[2017-01-06 08:20] VITALS: BP 122/85; PULSE 85; RESP 18
[2017-01-06] MEDS: ASPIRIN 81 MG TAB PO SCH (08:21)
[2017-01-06] MEDS: METOPROLOL 25 MG TAB PO SCH (08:22)
[2017-01-06] MEDS: CYCLOBENZAPRINE 10 MG TAB PO SCH (08:23)
[2017-01-06] MEDS: HYDROCODONE/APAP (5/325) TAB PO PRN ×2 (08:37→17:53)
[2017-01-06] MEDS ORDERED: ATENOLOL 50 MG TAB PO SCH (09:00)
[2017-01-06] MEDS: SOD CHLORIDE 0.9% 1,000 ML IV SCH (11:00)
[2017-01-06 11:50] VITALS: BP 129/76; RESP 18
[2017-01-06] MEDS: METHYLPREDNISOLONE 4 MG TAB PO SCH ×2 (12:45→14:37)
--- NOTE | 2017-01-06 16:13 | CONS ---
Date/Time of Note Date/Time of Note DATE: 01/06/17 TIME: 16:11 Assessment/Plan Assessment/Plan Chief Complaint/Hosp Course Imp: 1.Chest pain-somewhat atypical. NO current chest pain. Trop negative x 3. Lexiscan negative for ischemia 2.Abnl ecg-negative trop x 3 3.Back pain/hip apin 4.Hypothyroid 5.Palpitations-mildly elevated TSH Recc: -tele -Continue BB -Continue asa -Pain control -check free T4 to further assess current thyroid state -s/p neuro and NRSG consult with reccs for steroid injection Problems: Consultation Date/Type/Reason Admit Date/Time Dec 31, 2016 at 08:57 Initial Consult Date 01/01/2017 Type of Consultation: Cardiology Reason for Consultation Chest pain Referring Provider: GRACE BARKER MD Exam/Review of Systems Vital Signs Vitals Vital Signs Date Time Temp Pulse Resp B/P Pulse Ox O2 Delivery O2 Flow Rate FiO2 01/06/17 11:50 98.6 75 18 129/76 100 01/06/17 08:20 Room Air Intake and Output 01/05/17 01/05/17 01/06/17 15:00 23:00 07:00 Intake Total 1500 ml 500 ml Balance 1500 ml 500 ml Exam Review of Systems: CONSTITUTIONAL: No fevers, chills. PULMONARY: No sob CARDIOVASCULAR: No chest pain/palpitations GASTROINTESTINAL: No nausea/vomiting. GENITOURINARY: No hematuria/dysuria. MUSCULOSKELETAl: C/O back soon. PSYCHIATRIC: The patient denies depression. NEUROLOGIC: No weakness Constitutional: alert, oriented Psych: no complaints Head: normocephalic ENMT: mucosa pink and moist Neck: jvd (8 cm water), supple Respiratory: diminished breath sounds (at bases/B) Cardiovascular: regular rate and rhythm Gastrointestinal: non-tender Musculoskeletal: muscle tone (normal) Extremities: edema (none) Neurological: other (No focal deficits) Medications Medications Current Medications Aspirin (Aspirin) 81 mg DAILY PO Last administered on 01/06/17 08:21; Admin Dose 81 MG; Start 01/01/17 at 09:00 Pantoprazole (Protonix Tab) 40 mg DAILY@06 PO Last administered on 01/06/17 06 :25; Admin Dose 40 MG; Start 12/31/16 at 11:00 Acetaminophen/ Hydrocodone Bitart ([place] (5/325)) 1 tab Q6H PRN PO severe headache Last administered on 01/06/17 08:37; Admin Dose 1 TAB; Start 12/31/16 at 12:00 Ondansetron HCl 4 mg 4 mg Q4H PRN IV NAUSEA AND/OR VOMITING Last administered on 01/04/17 04:38; Admin Dose 4 MG; Start 12/31/16 at 13:00 Sodium Chloride (NS) 1,000 ml @ 50 mls/hr Q20H IV Last administered on 18:57; Admin Dose 50 MLS/HR; Start 12/31/16 at 15:00 Zolpidem Tartrate (Ambien) 5 mg HS PRN PO INSOMNIA Last administered on 22:03; Admin Dose 5 MG; Start 12/31/16 at 23:30 Cyclobenzaprine HCl (Flexeril) 10 mg BID PO Last administered on 01/06/17 08: 23; Admin Dose 10 MG; Start 01/01/17 at 14:00 Metoprolol Tartrate (Lopressor) 25 mg BID PO Last administered on 01/06/17 08: 22; Admin Dose 25 MG; Start 01/02/17 at 21:00 Nitroglycerin (Nitroglycerin (Sl Tab) 0.4 Mg) 1 tab Q5M PRN SL ANGINA; Start at 12:30 Morphine Sulfate (morphine) 3 mg Q4H PRN IV pain Last administered on 14:39; Admin Dose 3 MG; Start 01/05/17 at 19:00 Methylprednisolone (Medrol) 8 mg HS PO ; Start 01/06/17 at 21:00; Stop 01/06/17 at 21:01 Methylprednisolone (Medrol) 4 mg HS PO ; Start 01/07/17 at 21:00; Stop 01/09/17 at 21:01 Atenolol (Tenormin) 50 mg DAILY PO Last administered on 01/06/17 08:37; Admin Dose 50 MG; Start 01/06/17 at 09:00 ANNA KHAN 24, 2017 16:13
--- NOTE | 2017-01-06 16:37 | PN ---
Date/Time of Note Date/Time of Note DATE: 01/06/17 TIME: 16:35 Assessment/Plan VTE Prophylaxis VTE Prophylaxis Intervention: ambulation Lines/Catheters IV Catheter Type (from Nrs): Peripheral IV Assessment/Plan Chief Complaint/Hosp Course 1. ACS. 2. S/p thyroidectomy, pt is on levothyrixine 100 mcg daily 3. Headache, better 4. Hypertension, controlled 5 back pain Problems: Assessment/Plan Discharge is pending Subjective 24 Hr Interval Summary Constitutional: improved, no complaints Eyes: no complaints ENT: no complaints Respiratory: no complaints Cardiovascular: no complaints Gastrointestinal: no complaints Genitourinary: no complaints Exam/Review of Systems Vital Signs Vitals Vital Signs Date Time Temp Pulse Resp B/P Pulse Ox O2 Delivery O2 Flow Rate FiO2 01/06/17 11:50 98.6 75 18 129/76 100 01/06/17 08:20 Room Air Intake and Output 01/05/17 01/05/17 01/06/17 15:00 23:00 07:00 Intake Total 1500 ml 500 ml Balance 1500 ml 500 ml Exam Constitutional: alert, oriented, well developed Psych: nl mood/affect, no complaints Head: atraumatic, normocephalic Eyes: nl conjunctiva Neck: supple Respiratory: clear to auscultation Cardiovascular: regular rate and rhythm Gastrointestinal: soft Medications Medications Current Medications Aspirin (Aspirin) 81 mg DAILY PO Last administered on 01/06/17 08:21; Admin Dose 81 MG; Start 01/01/17 at 09:00 Pantoprazole (Protonix Tab) 40 mg DAILY@06 PO Last administered on 01/06/17 06 :25; Admin Dose 40 MG; Start 12/31/16 at 11:00 Acetaminophen/ Hydrocodone Bitart ([place] (5/325)) 1 tab Q6H PRN PO severe headache Last administered on 01/06/17 08:37; Admin Dose 1 TAB; Start 12/31/16 at 12:00 Ondansetron HCl 4 mg 4 mg Q4H PRN IV NAUSEA AND/OR VOMITING Last administered on 01/04/17 04:38; Admin Dose 4 MG; Start 12/31/16 at 13:00 Sodium Chloride (NS) 1,000 ml @ 50 mls/hr Q20H IV Last administered on 18:57; Admin Dose 50 MLS/HR; Start 12/31/16 at 15:00 Zolpidem Tartrate (Ambien) 5 mg HS PRN PO INSOMNIA Last administered on 22:03; Admin Dose 5 MG; Start 12/31/16 at 23:30 Cyclobenzaprine HCl (Flexeril) 10 mg BID PO Last administered on 01/06/17 08: 23; Admin Dose 10 MG; Start 01/01/17 at 14:00 Metoprolol Tartrate (Lopressor) 25 mg BID PO Last administered on 01/06/17 08: 22; Admin Dose 25 MG; Start 01/02/17 at 21:00 Nitroglycerin (Nitroglycerin (Sl Tab) 0.4 Mg) 1 tab Q5M PRN SL ANGINA; Start at 12:30 Morphine Sulfate (morphine) 3 mg Q4H PRN IV pain Last administered on 14:39; Admin Dose 3 MG; Start 01/05/17 at 19:00 Methylprednisolone (Medrol) 8 mg HS PO ; Start 01/06/17 at 21:00; Stop 01/06/17 at 21:01 Methylprednisolone (Medrol) 4 mg HS PO ; Start 01/07/17 at 21:00; Stop 01/09/17 at 21:01 Atenolol (Tenormin) 50 mg DAILY PO Last administered on 01/06/17 08:37; Admin Dose 50 MG; Start 01/06/17 at 09:00 SAMIA FOURNIER 24, 2017 16:37
--- NOTE | 2017-01-06 16:39 | PDOCDIS ---
Discharge Instructions CONDITION Patient Condition: Stable ACTIVITY: Activity Restrictions: Slowly Increase Activity FOLLOW UP/APPOINTMENTS Appointments f/u own pcp 1 wk see [facility] by pcp referral f/u dr jackson 2 wks GRACE BAREKR MD Jan 06, 2017 16:39
[2017-01-06] MEDS ORDERED: PANT40TA4 PO (16:43)
[2017-01-06] MEDS ORDERED: CYCL-319 PO (16:43)
[2017-01-06] MEDS ORDERED: MED4DP PO (16:43)
--- NOTE | 2017-01-07 20:05 | DS ---
Date/Time of Note Date/Time of Note DATE: 01/07/17 TIME: 19:57 Discharge Summary Admission/Discharge Info Admit Date/Time Dec 31, 2016 at 08:57 Discharge Date/Time Jan 06, 2017 at 19:40 Final Diagnosis 1. Palpitations 2. Atypical chest pain, negative troponins and lexiscan 3. Nicotine dependence 4. Chronic pain Patient Condition: Good Consults Dr Sampson Procedures Susana Hx of Present Illness 1. Pt was admitted for chest pain, labwork rulled out myocardial infarction 2. Hypertension is controlled 3. Hypothyroidism controlled Hospital Course 1. ACS. 2. S/p thyroidectomy, pt is on levothyrixine 100 mcg daily 3. Headache, better 4. Hypertension, controlled 5 back pain Home Meds Active Scripts Cyclobenzaprine Hcl* (Cyclobenzaprine Hcl*) 10 Mg Tablet, 10 MG PO BID for 7 Days, TAB Prov:GRACE BARKER MD 01/06/17 Methylprednisolone* (Medrol* DOSE PACK) 4 Mg/Dose-Pack Tab.ds.pk, 4 MG PO . DIRECTED for 14 Days, PACKET Prov:GRACE BARKER MD 01/06/17 Pantoprazole* (Pantoprazole*) 40 Mg Tablet., 40 MG PO DAILY@06 for 14 Days Prov:GRACE BARKER MD 01/06/17 Reported Medications Albuterol Sulfate* (Albuterol Sulfate* Neb) 0.083%-3 Ml Neb, 2.5 MG NEB Q4H Y for WHEEZING AND SOB, EA 07/12/15 Levothyroxine Sodium* (Synthroid*) 100 Mcg Tablet, 100 MCG PO DAILY 06/19/13 Atenolol* (Atenolol*) 50 Mg Tablet, 50 MG PO DAILY 06/19/13 Follow-up Plan 1. Follow up with PCP in one week SAMIA FOURNIER Jan 07, 2017 20:05
[2017-01-07] MEDS ORDERED: METHYLPREDNISOLONE 4 MG TAB PO SCH (21:00)
== END 2017-01-06 19:40 | disposition home or self-care (01) | DRG 313 ==
LOC: E/R 06:41 → TEL 08:57 → MS2 01-06 11:45
PROVIDERS: ADMIT Internal Medicine Nephrology; ATTEND Internal Medicine Nephrology
DX: R07.89 Other chest pain (principal); I25.2 Old myocardial infarction; M51.24 Other intervertebral disc displacement, thoracic region; I10 Essential (primary) hypertension; Z76.5 Malingerer [conscious simulation]; E78.5 Hyperlipidemia, unspecified; Z72.0 Tobacco use; R51 Headache; G89.29 Other chronic pain; E89.0 Postprocedural hypothyroidism; R00.2 Palpitations; M51.16 Intervertebral disc disorders with radiculopathy, lumbar region
CPT/HCPCS: 71010; 72128; 72131; 72146; 72148; 72156; 78452; 80048; 80053; 82550; 82553; 84443; 84484; 84703; 85025; 85378; 85610; 85730; 93005; 93017; 94640; 94664; A9500; A9505; J1885; J2270; J2405; J2785; J7030; J7509

== ENCOUNTER 2019-02-10 18:16 | Observation (INO) | payer MEDICAID, OTHER ==
[~2019-02-10] VITALS: Ht 157.5 cm; Wt 64.1 kg
[~2019-02-10 18:16] MED LIST changes: +ATOR-2 PO; +CYCL10TA7 PO; +HYDR-4011 PO; +LEVO-86 PO; +LEVO100T8 PO; +MED4DP PO; +PANT40TA4 PO; -SYN1 PO
[2019-02-10] MEDS ORDERED: ASPIRIN 325 MG TAB PO STA (18:46)
[2019-02-10] MEDS ORDERED: ONDANSETRON 4 MG INJ IV STA (18:46)
[2019-02-10] MEDS ORDERED: HYDROmorphONE 1 MG/ML SYG IV STA (18:46)
[2019-02-10] MEDS ORDERED: NITROGLYCERIN (SL) 0.4 MG TAB SL PRN (19:00)
--- NOTE | 2019-02-10 19:33 | ERD ---
ER Documentation Chief Complaint Chief Complaint cp today, lle pain HPI This is a 43-year-old female with a past medical history of congestive heart failure that presents to the emergency department complaining of a sudden onset of severe left-sided chest pressure. She stated the pain occurred 2 hours prior to arrival. She states the pain is 10 out of 10 in intensity. She has associated shortness of breath at rest and indicates she is also experiencing pleuritic chest pain as the chest discomfort is worse when she takes in a deep breath. She denies any swelling of her lower extremities. The patient indicated yesterday she felt a sudden onset of dizziness and numbness and tingling of the left side of her upper and lower extremity. This lasted for roughly 10 seconds and had spontaneous [place] resolved but she also indicated that she had a mechanical fall and landed on an inverted left ankle when she felt dizzy. She indicated her symptoms had improved and therefore she was not concerned with the episode of dizziness and numbness and tingling. She denied a headache. She stated that she is complaining of left ankle pain but had gone to the doctor again yesterday and walked on the ankle, but did exacerbate the pain. She smokes tobacco. She is no family history of coronary artery disease. She states the chest pain does not radiate to the neck arm back or jaw. She indicates she does not use illicit drugs or alcohol. She states she is never expressed any pain is intense of the chest pain she is experiencing at this moment. ROS All systems reviewed and are negative except as per history of present illness. Medications Home Meds Active Scripts Cyclobenzaprine Hcl* (Cyclobenzaprine Hcl*) 10 Mg Tablet, 10 MG PO BID for 7 Days, TAB Prov:GRACE BARKER MD 01/06/17 Methylprednisolone* (Medrol* DOSE PACK) 4 Mg/Dose-Pack Tab.ds.pk, 4 MG PO . DIRECTED for 14 Days, PACKET Prov:GRACE BARKER MD 01/06/17 Pantoprazole* (Pantoprazole*) 40 Mg Tablet.dr, 40 MG PO DAILY@06 for 14 Days Prov:GRACE BARKER MD 01/06/17 Reported Medications Albuterol Sulfate* (Albuterol Sulfate* Neb) 0.083%-3 Ml Neb, 2.5 MG NEB Q4H PRN for WHEEZING AND SOB, EA 07/12/15 Levothyroxine Sodium* (Synthroid*) 100 Mcg Tablet, 100 MCG PO DAILY 06/19/13 Atenolol* (Atenolol*) 50 Mg Tablet, 50 MG PO DAILY 06/19/13 Allergies Allergies: Coded Allergies: Penicillins (Verified Allergy, Mild, 02/04/14) PMhx/Soc History of Surgery: Yes (thyroidectomy) Anesthesia Reaction: No Hx Neurological Disorder: No Hx Respiratory Disorders: No Hx Cardiac Disorders: No Hx Psychiatric Problems: No Hx Miscellaneous Medical Probl: No Hx Alcohol Use: No Hx Substance Use: No Hx Tobacco Use: Yes Physical Exam Vitals Vital Signs Date Temp Pulse Resp B/P (MAP) Pulse Ox O2 O2 Flow FiO2 Time Delivery Rate 02/10/19 98.0 98 20 132/85 98 18:18 (101) Physical Exam Constitutional:Well-developed. Well-nourished. HEENT:Normocephalic. Atraumatic.Pupils were equal round reactive to light. Moist mucous membranes.No tonsillar exudates. Neck: No nuchal rigidity. No lymphadenopathy. No posterior cervical spine tenderness or step-offs. Respiratory: Not using accessory muscles of respiration.Lungs were clear to auscultation bilaterally. No rhonchi. No rales. No wheezing. Cardiovascular: Regular rate regular rhythm.No murmurs. No rubs were appreciated.S1, S2 normal. Distal pulses are palpable 2+ bilaterally. GI: Abdomen was soft. Nontender. Non Distended. No pulsatile abdominal masses or bruits. No rebound. No guarding. Bowel sounds were present and normal. Muscle skeletal: Full range of motion of both the upper and lower extremities bilaterally.Normal muscle tone.No assymetrical calf tenderness or swelling. Tenderness over the lateral left malleolus with mild soft tissue swelling. No midfoot tenderness on the left. No tenderness over the left fibular head. Lower extremities are of equal length and symmetrical no internal or external rotation. Skin: No petechia, no purpura. No lesions on the palms or the soles of the feet. No maculopapular rash. NEURO: Patient was alert, awake, orientated x3.No facial droop. Gait observed and normal with no ataxia.Speech had regular rate and rhythm. No focal neurological deficits. Result Diagram: 4/28/19 1901 4/28/19 1901 Results 24 hrs Laboratory Tests Test 02/10/19 19:01 White Blood Count 9.3 10^3/ul Red Blood Count 4.04 10^6/ul Hemoglobin 12.5 g/dl Hematocrit 38.9 % Mean Corpuscular Volume 96.3 fl Mean Corpuscular Hemoglobin 30.9 pg Mean Corpuscular Hemoglobin Concent 32.1 g/dl Red Cell Distribution Width 13.4 % Platelet Count 365 10^3/UL Mean Platelet Volume 9.4 fl Immature Granulocytes % 0.300 % Neutrophils % 57.2 % Lymphocytes % 32.9 % Monocytes % 6.9 % Eosinophils % 2.3 % Basophils % 0.4 % Nucleated Red Blood Cells % 0.0 /100WBC Immature Granulocytes # 0.030 10^3/ul Neutrophils # 5.3 10^3/ul Lymphocytes # 3.0 10^3/ul Monocytes # 0.6 10^3/ul Eosinophils # 0.2 10^3/ul Basophils # 0.0 10^3/ul Nucleated Red Blood Cells # 0.0 10^3/ul Prothrombin Time 13.0 Sec Prothrombin Time Ratio 1.0 INR International Normalized Ratio 0.97 Activated Partial Thromboplast Time 26.9 Sec Sodium Level 142 mmol/L Potassium Level 4.1 mmol/L Chloride Level 107 mmol/L Carbon Dioxide Level 29 mmol/L Anion Gap 6 Blood Urea Nitrogen 16 mg/dl Creatinine 0.77 mg/dl Est Glomerular Filtrat Rate mL/min > 60 mL/min Glucose Level 91 mg/dl Calcium Level 9.0 mg/dl Total Bilirubin 0.0 mg/dl Direct Bilirubin 0.00 mg/dl Indirect Bilirubin 0.0 mg/dl Aspartate Amino Transf (AST/SGOT) 18 IU/L Alanine Aminotransferase (ALT/SGPT) 10 IU/L Alkaline Phosphatase 43 IU/L Creatine Kinase 62 IU/L Creatine Kinase Index Pending Creatinine Kinase MB (Mass) Pending Troponin I Pending B-Type Natriuretic Peptide Pending Total Protein 7.0 g/dl Albumin 4.1 g/dl Globulin 2.90 g/dl Albumin/Globulin Ratio 1.41 Current Medications Medications Dose Sig/Manny Start Time Status Last (Trade) Ordered Route PRN Stop Time Admin Dose Reason Admin Aspirin 325 mg ONCE STAT 02/10/19 DC (Aspirin) PO 18:46 02/10/19 18:50 1 tab Q5M UP TO 3 02/10/19 Nitroglycerin DOSES PRN 19:00 SL .CHEST (Nitroglyceri PAIN n (Sl Tab) 0.4 Mg) 1 mg ONCE STAT 02/10/19 DC Hydromorphone IV 18:46 HCl 02/10/19 18:50 (Dilaudid) Ondansetron 4 mg ONCE STAT 02/10/19 DC HCl (Zofran IV 18:46 Inj) 02/10/19 18:50 Procedures/MDM The patient presented to the emergency department with chest pain. My clinical evaluation and workup was to distinguish minor causes of chest pain from acute life threatening conditions such as myocardial infarction, pulmonary embolism, aortic dissection, esophageal rupture, cardiac tamponade. The patient was placed on a quality assurance monitor body and continuous pulse oximetry. IV access established by nursing staff. The patient was given aspirin and nitroglycerin. This did not improve her chest pain. Therefore she was given IV Dilaudid. 12 Lead EKG tracing ordered and reviewed by myself showed: Normal sinus rhythm of 94 bpm and no arrhythmia. IA interval normal. QRS duration normal. No ST segment elevation No ST segment depression. No changes consistent with acute ischemia. I obtained a 1 view chest radiograph and there is no infiltrates pneumothorax or pleural effusions. Utilizing the auto ankle knee rules radiographic imaging was obtained the left ankle. There was no fracture and I did feel that this was more likely ligamentous injury or sprain. Given the patient's physical exam findings and history did feel is necessary to obtain a CT scan of the patient's chest as my clinical suspicion was high for pulmonary embolism. CT scan indicated no pulmonary embolism. However I did feel the patient required admission for serial twelve-lead EKG tracings and cardiac set of enzymes. Given the trauma to her left lower extremity I do feel is necessary to obtain venous duplex ultrasounds and there is no evidence of DVTs bilaterally. Compartments are soft of the bilateral lower extremities. Sh e will be admitted to the hospitalist. Departure Diagnosis: Primary Impression: Chest pain Chest pain type: chest pain on breathing Qualified Codes: R07.1 - Chest pain on breathing Additional Impression: Left ankle sprain Encounter type: initial encounter Involved ligament of ankle: unspecified ligament Qualified Codes: S93.402A - Sprain of unspecified ligament of left ankle, initial encounter Condition: Serious GETACHEW HAQ MD Feb 10, 2019 19:33
[2019-02-10] MEDS ORDERED: IOHEXOL 100 ML ONE (19:48)
[2019-02-10] MEDS ORDERED: SOD CHLORIDE 0.9% 100 ML ONE (19:48)
[2019-02-10] MEDS ORDERED: morphine 4 MG/ML VIAL IV STA (20:25)
[2019-02-10] MEDS ORDERED: ACETAMINOPHEN 325 MG TAB PO PRN (20:30)
[2019-02-10] MEDS: ONDANSETRON 4 MG INJ IV PRN (21:26)
--- NOTE | 2019-02-10 23:42 | HP ---
Date/Time of Note Date/Time of Note DATE: 02/10/19 TIME: 23:42 Assessment/Plan VTE Prophylaxis Pharmacological prophylaxis: heparin Assessment/Plan Assessment/Plan 1. Chest pain with left arm weakness and pain -On my exam, her pain was reproducible on palpation and she also has bruising over her upper chest -Will however rule out ACS. First troponin is negative and EKG without ST-T wave abnormalities -Obtain 2D echo and cardiology consult as needed -Supplemental oxygen, aspirin. As needed nitro -Check A1c, fasting lipid and TSH in a.m. 2. Left ankle swelling and pain: After patient twisted her ankle -Pain management 3. Mild emphysema: Patient with long history of smoking -Supplemental oxygen, bronchodilators and steroid as needed 4. History of thyroid cancer status post thyroidectomy 1998: Continue Synthroid 5. Reported history of CHF: Follow-up 2D echo results. See #1 Result Diagram: 02/10/19 1901 02/10/19 1901 Results 24hrs Laboratory Tests Test 02/10/19 19:01 02/10/19 19:04 White Blood Count 9.3 Red Blood Count 4.04 L Hemoglobin 12.5 Hematocrit 38.9 Mean Corpuscular Volume 96.3 Mean Corpuscular Hemoglobin 30.9 Mean Corpuscular Hemoglobin Concent 32.1 Red Cell Distribution Width 13.4 Platelet Count 365 Mean Platelet Volume 9.4 Immature Granulocytes % 0.300 Neutrophils % 57.2 Lymphocytes % 32.9 Monocytes % 6.9 Eosinophils % 2.3 Basophils % 0.4 Nucleated Red Blood Cells % 0.0 Immature Granulocytes # 0.030 Neutrophils # 5.3 Lymphocytes # 3.0 H Monocytes # 0.6 Eosinophils # 0.2 Basophils # 0.0 Nucleated Red Blood Cells # 0.0 Prothrombin Time 13.0 Prothrombin Time Ratio 1.0 INR International Normalized Ratio 0.97 Activated Partial Thromboplast Time 26.9 Sodium Level 142 Potassium Level 4.1 Chloride Level 107 Carbon Dioxide Level 29 Anion Gap 6 Blood Urea Nitrogen 16 Creatinine 0.77 Est Glomerular Filtrat Rate mL/min > 60 Glucose Level 91 Calcium Level 9.0 Total Bilirubin 0.0 L Direct Bilirubin 0.00 Indirect Bilirubin 0.0 Aspartate Amino Transf (AST/SGOT) 18 Alanine Aminotransferase (ALT/SGPT) 10 L Alkaline Phosphatase 43 Creatine Kinase 62 Creatine Kinase Index 0.4 Creatinine Kinase MB (Mass) < 0.22 Troponin I < 0.012 B-Type Natriuretic Peptide 31 Total Protein 7.0 Albumin 4.1 Globulin 2.90 Albumin/Globulin Ratio 1.41 Urine Color YELLOW Urine Clarity SLIGHTLY CLOUDY A Urine pH 7.0 Urine Specific [place] 1.024 Urine Ketones NEGATIVE Urine Nitrite NEGATIVE Urine Bilirubin NEGATIVE Urine Urobilinogen NEGATIVE Urine Leukocyte Esterase NEGATIVE Urine Microscopic RBC 1 Urine Microscopic WBC 3 Urine Squamous Epithelial Cells MODERATE Urine Bacteria FEW A Urine Hemoglobin NEGATIVE Urine Glucose NEGATIVE Urine Total Protein NEGATIVE HPI/ROS Admit Date/Time Admit Date/Time Hx of Present Illness This is a 43-year-old female with a reported history of thyroid cancer status post thyroidectomy in 1995 on Synthroid, self-reported CHF who presents the ER complaining of chest pain with left arm pain and weakness and left ankle pain. She said she went to [place] to care for her mom when she blacked out while cleaning up and looking after kids. She denied having had a chest pain, palpitation or dizziness at that time. She said she twisted her ankle and has been having pain and some swelling on the left ankle. Patient also has some bruising over chest. She came back home and a few hours before coming to the ER, while she was sitting at home, she had a sudden onset of pressure-like chest pain with associated left arm weakness and pain. She states she took her 's [place] without significant improvement in her pain and as such she came to the ER for evaluation. When she presented to the ER, vitals are stable. First troponin negative and EKG without ST-T wave abnormalities. CT pulmonary angiogram shows centrilobular emphysema without PE or dissection. Left ankle x-ray shows lateral soft tissue swelling. Head CT without acute findings. PMH/Family/Social Past Medical History Medical History: other (See HPI) Medications Current Medications Nitroglycerin (Nitroglycerin (Sl Tab) 0.4 Mg) 1 tab Q5M UP TO 3 DOSES PRN SL .CHEST PAIN Last administered on 02/10/19at 19:25; Admin Dose 1 TAB; Start 02/10/19 at 19:00 Ondansetron HCl (Zofran Inj) 4 mg ER BRIDGE PRN IV NAUSEA/VOMITING Last administered on 02/10/19at 21:26; Admin Dose 4 MG; Start 02/10/19 at 20:30; Stop 02/11/19 at 20:29 Acetaminophen (Tylenol Tab) 650 mg ER BRIDGE PRN PO .MILD PAIN 1-3 OR TEMP; Start 02/10/19 at 20:30; Stop 02/11/19 at 20:29 Coded Allergies: Penicillins (Verified Allergy, Mild, 02/04/14) Past Surgical History Past Surgical Hx: other (Thyroidectomy) Family History Significant Family History: other (Mother with a history of thyroid cancer) Social History Alcohol Use: occasionally Smoking Status: Current every day smoker Drug Use: none Exam/Review of Systems Vital Signs Vitals Vital Signs Date Temp Pulse Resp B/P (MAP) Pulse Ox O2 O2 Flow FiO2 Time Delivery Rate 02/10/19 98.0 80 20 132/85 98 Room Air 18:45 (101) Exam Constitutional: alert, oriented, well developed Head: normocephalic, atraumatic Eyes: EOMI, PERRL Respiratory: clear to auscultation, normal air movement Cardiovascular: regular rate and rhythm, nl pulses Gastrointestinal: soft, non-tender Musculoskeletal: other (Chest pain elicited on palpation on palpation of chest. There is also bruising in the upper chest) Extremities: other (There is swelling and tenderness on the lateral left ankle) SANDRINE FLEMING MD Feb 10, 2019 23:42
[2019-02-11] VITALS (11 sets, daily range): BP systolic 97–169; BP diastolic 55–83; PULSE 68–88; RESP 18–19; Ht 157.5 cm; Wt 64.1 kg
[2019-02-11] MEDS ORDERED: NITROGLYCERIN (SL) 0.4 MG TAB SL PRN
[2019-02-11] MEDS ORDERED: ALBUTEROL 0.083% (NEB) 2.5 MG/3 ML AMP NEB PRN
[2019-02-11] MEDS ORDERED: ACETAMINOPHEN 325 MG TAB PO PRN
[2019-02-11] MEDS ORDERED: NACL 0.9% 3 ML SYG IV SCH
[2019-02-11] MEDS: HYDROCODONE/APAP (5/325) TAB PO PRN ×3 (00:56→22:34)
[2019-02-11] MEDS: ONDANSETRON 4 MG INJ IV PRN ×2 (02:42→10:57)
[2019-02-11] MEDS ORDERED: morphine 4 MG/ML VIAL IV STA (02:44)
[2019-02-11] MEDS: PANTOPRAZOLE (EC) 40 MG TAB PO SCH (05:42)
[2019-02-11] MEDS: LEVOTHYROXINE 100 MCG TAB PO SCH (06:05)
[2019-02-11] MEDS: morphine 2 MG INJ IV PRN ×2 (06:05→09:41)
[2019-02-11] MEDS: ASPIRIN 81 MG TAB PO SCH (08:38)
[2019-02-11] MEDS: ATENOLOL 50 MG TAB PO SCH (08:38)
[2019-02-11] MEDS ORDERED: LEVOTHYROXINE 100 MCG TAB PO SCH (09:00)
[2019-02-11] MEDS: ENOXAPARIN 40 MG/0.4 ML SYG SC SCH (09:46)
--- NOTE | 2019-02-11 09:52 | PN ---
Date/Time of Note Date/Time of Note DATE: 02/11/19 TIME: 09:51 Assessment/Plan VTE Prophylaxis Pharmacological prophylaxis: LMWH Lines/Catheters [facility] [place] Assessment/Plan Hospital Course 43-year-old female who presents to the emergency room with sudden onset of severe left-sided chest pressure with dizziness and subsequent fall, currently managed as follows: 1. Atypical chest pain with left arm weakness -Complete ACS rule out -Likely musculoskeletal, patient likely suffered radiation damage to nerves based on description but does have significant cardiac risk factors and so may benefit from stress test -Will defer to cardiology -CT with IV contrast showed no evidence of PE or aortic dissection, did show mild centrilobular emphysema -+ fam hx of premature CAD - chronic tobacco user 2. Left ankle swelling and pain without evidence of fracture after mechanical fall -Pain control, rest and splinting if indicated 3. Chronic tobacco use and abuse mild COPD/emphysema - Smoking Cessation Therapy: Pt. was counselled for greater than 3 minutes on the health risks of continued smoking and the benefits of cessation, this will continue to be reinforced throughout hospitalization. 4. History of thyroid cancer status post thyroidectomy 1998 -TSH still high, patient admits poor compliance to therapy. 5. Reported History of CHF without evidence of acute exacerbation Plan -Based on patient's history will obtain cardiology consultation just to ensure no further testing is warranted -Urinalysis is mildly suggestive of a UTI, will send for cultures -Follow-up 2D echo -Physical therapy evaluation to see if further intervention is needed for her ankle -Further interventions per course. High probability of discharge later today if patient is stable and safe Result Diagram: 02/10/19 1901 02/10/19 1901 Results 24hrs Laboratory Tests Test 02/10/19 19:01 02/10/19 19:04 White Blood Count 9.3 Red Blood Count 4.04 L Hemoglobin 12.5 Hematocrit 38.9 Mean Corpuscular Volume 96.3 Mean Corpuscular Hemoglobin 30.9 Mean Corpuscular Hemoglobin Concent 32.1 Red Cell Distribution Width 13.4 Platelet Count 365 Mean Platelet Volume 9.4 Immature Granulocytes % 0.300 Neutrophils % 57.2 Lymphocytes % 32.9 Monocytes % 6.9 Eosinophils % 2.3 Basophils % 0.4 Nucleated Red Blood Cells % 0.0 Immature Granulocytes # 0.030 Neutrophils # 5.3 Lymphocytes # 3.0 H Monocytes # 0.6 Eosinophils # 0.2 Basophils # 0.0 Nucleated Red Blood Cells # 0.0 Prothrombin Time 13.0 Prothrombin Time Ratio 1.0 INR International Normalized Ratio 0.97 Activated Partial Thromboplast Time 26.9 Sodium Level 142 Potassium Level 4.1 Chloride Level 107 Carbon Dioxide Level 29 Anion Gap 6 Blood Urea Nitrogen 16 Creatinine 0.77 Est Glomerular Filtrat Rate mL/min > 60 Glucose Level 91 Calcium Level 9.0 Total Bilirubin 0.0 L Direct Bilirubin 0.00 Indirect Bilirubin 0.0 Aspartate Amino Transf (AST/SGOT) 18 Alanine Aminotransferase (ALT/SGPT) 10 L Alkaline Phosphatase 43 Creatine Kinase 62 Creatine Kinase Index 0.4 Creatinine Kinase MB (Mass) < 0.22 Troponin I < 0.012 B-Type Natriuretic Peptide 31 Total Protein 7.0 Albumin 4.1 Globulin 2.90 Albumin/Globulin Ratio 1.41 Urine Color YELLOW Urine Clarity SLIGHTLY CLOUDY A Urine pH 7.0 Urine Specific [place] 1.024 Urine Ketones NEGATIVE Urine Nitrite NEGATIVE Urine Bilirubin NEGATIVE Urine Urobilinogen NEGATIVE Urine Leukocyte Esterase NEGATIVE Urine Microscopic RBC 1 Urine Microscopic WBC 3 Urine Squamous Epithelial Cells MODERATE Urine Bacteria FEW A Urine Hemoglobin NEGATIVE Urine Glucose NEGATIVE Urine Total Protein NEGATIVE Subjective 24 Hr Interval Summary Free Text/Dictation Complaining that the chest pain is persistent and recurrent. Located in left chest wall radiates to under her left forearm in the axillary region. Also stating that current pain regimen is not adequately controlling her lower extremity pain. Patient did receive radiation therapy to her thyroid after removal. Exam/Review of Systems Exam Vitals Vital Signs Date Temp Pulse Resp B/P (MAP) Pulse Ox O2 O2 Flow FiO2 Time Delivery Rate 02/11/19 81 08:01 02/11/19 98.5 18 115/72 98 07:23 (86) 02/11/19 Room Air 04:00 Intake and Output 02/10/19 02/10/19 02/11/19 1515:00 23:00 07:00 IntakeIntake Total 220 ml BalanceBalance 220 ml Exam General: A&O x3, answering questions appropriately HEENT: NC/ AT. PERRL. EOM intact Neck: supple CVS: S1, S2, RRR. no murmurs. no pain on chest wall palpation Lungs: CTA b/l. no wheezing or rhonchi Abd: soft, nontender, +BS Ext: moving all extremities, old bruise L knee and soft tss swelling L ankle skin: no rashes Results Results 24hrs Laboratory Tests Test 02/10/19 19:01 02/10/19 19:04 White Blood Count 9.3 Red Blood Count 4.04 L Hemoglobin 12.5 Hematocrit 38.9 Mean Corpuscular Volume 96.3 Mean Corpuscular Hemoglobin 30.9 Mean Corpuscular Hemoglobin Concent 32.1 Red Cell Distribution Width 13.4 Platelet Count 365 Mean Platelet Volume 9.4 Immature Granulocytes % 0.300 Neutrophils % 57.2 Lymphocytes % 32.9 Monocytes % 6.9 Eosinophils % 2.3 Basophils % 0.4 Nucleated Red Blood Cells % 0.0 Immature Granulocytes # 0.030 Neutrophils # 5.3 Lymphocytes # 3.0 H Monocytes # 0.6 Eosinophils # 0.2 Basophils # 0.0 Nucleated Red Blood Cells # 0.0 Prothrombin Time 13.0 Prothrombin Time Ratio 1.0 INR International Normalized Ratio 0.97 Activated Partial Thromboplast Time 26.9 Sodium Level 142 Potassium Level 4.1 Chloride Level 107 Carbon Dioxide Level 29 Anion Gap 6 Blood Urea Nitrogen 16 Creatinine 0.77 Est Glomerular Filtrat Rate mL/min > 60 Glucose Level 91 Calcium Level 9.0 Total Bilirubin 0.0 L Direct Bilirubin 0.00 Indirect Bilirubin 0.0 Aspartate Amino Transf (AST/SGOT) 18 Alanine Aminotransferase (ALT/SGPT) 10 L Alkaline Phosphatase 43 Creatine Kinase 62 Creatine Kinase Index 0.4 Creatinine Kinase MB (Mass) < 0.22 Troponin I < 0.012 B-Type Natriuretic Peptide 31 Total Protein 7.0 Albumin 4.1 Globulin 2.90 Albumin/Globulin Ratio 1.41 Urine Color YELLOW Urine Clarity SLIGHTLY CLOUDY A Urine pH 7.0 Urine Specific [place] 1.024 Urine Ketones NEGATIVE Urine Nitrite NEGATIVE Urine Bilirubin NEGATIVE Urine Urobilinogen NEGATIVE Urine Leukocyte Esterase NEGATIVE Urine Microscopic RBC 1 Urine Microscopic WBC 3 Urine Squamous Epithelial Cells MODERATE Urine Bacteria FEW A Urine Hemoglobin NEGATIVE Urine Glucose NEGATIVE Urine Total Protein NEGATIVE Medications Medication Current Medications Ondansetron HCl (Zofran Inj) 4 mg ER BRIDGE PRN IV NAUSEA/VOMITING Last administered on 02/10/19at 21:26; Admin Dose 4 MG; Start 02/10/19 at 20:30; Stop 02/11/19 at 20:29 Acetaminophen (Tylenol Tab) 650 mg ER BRIDGE PRN PO .MILD PAIN 1-3 OR TEMP; Start 02/10/19 at 20:30; Stop 02/11/19 at 20:29 IV Flush (NS 3 ml) 3 ml PER PROTOCOL IV ; Start 02/11/19 at 00:00 Ondansetron HCl (Zofran Inj) 4 mg Q6H PRN IV NAUSEA/VOMITING Last administered on 02/11/19 02:42; Admin Dose 4 MG; Start 02/11/19 at 00:00 Aspirin (Aspirin) 81 mg DAILY PO Last administered on 02/11/19 08:38; Admin Dose 81 MG; Start 02/11/19 at 09:00 Nitroglycerin (Nitroglycerin (Sl Tab) 0.4 Mg) 1 tab Q5M PRN SL .CHEST PAIN Last administered on 02/11/19 02:41; Admin Dose 1 TAB; Start 02/11/19 at 00:00 Acetaminophen (Tylenol Tab) 650 mg Q6H PRN PO .PAIN 1-3 OR TEMP; Start 02/11/19 at 00:00 Acetaminophen/ Hydrocodone Bitart ([place] (5/325)) 1 tab Q6H PRN PO .PAIN 4-[address] administered on 02/11/19 08:38; Admin Dose 1 TAB; Start 02/11/19 at 00:00 Enoxaparin Sodium (Lovenox) 40 mg DAILY SC Last administered on 02/11/19 09:46; Admin Dose 40 MG; Start 02/11/19 at 09:00 Albuterol (Proventil 0.083% (Neb)) 2.5 mg Q4H RESP THERAPY PRN NEB WHEEZING AND SOB; Start 02/11/19 at 00:00 Atenolol (Tenormin) 50 mg DAILY PO Last administered on 02/11/19 08:38; Admin Dose 50 MG; Start 02/11/19 at 09:00 Pantoprazole (Protonix Tab) 40 mg DAILY@06 PO Last administered on 02/11/19 05:42; Admin Dose 40 MG; Start 02/11/19 at 06:00 Morphine Sulfate (morphine) 2 mg Q4H PRN IV SEVERE PAIN LEVEL 7-10 Last administered on 02/11/19 09:41; Admin Dose 2 MG; Start 02/11/19 at 06:00 Levothyroxine Sodium (Synthroid) 100 mcg AC BREAKFAST PO Last administered on 02/11/19at 06:05; Admin Dose 100 MCG; Start 02/11/19 at 07:00 ROZ FUNG Feb 11, 2019 09:52
[2019-02-11] MEDS: morphine 4 MG/ML VIAL IV PRN ×2 (14:19→19:55)
--- NOTE | 2019-02-11 18:28 | CONS ---
Assessment/Plan Assessment/Plan Hospital Course (Demo Recall) Chest pain VA was ruled out Hypertension: Under control Reported history of congestive heart failure: Currently does not appear to be in decompensated heart failure Thyroid disorder Severe dyslipidemia Recommendation: Start statin. Lexiscan study will be done tomorrow. Echocardiogram is pending. Continue with thyroid supplement and atenolol Thank you for his referral we will continue to follow along with you MARIANA TAFOYA MD [facility] Consultation Date/Type/Reason Admit Date/Time Date of Consultation: Feb 11, 2019 Type of Consult Cardiology Reason for Consultation chest pain Requesting Provider: ROZ FUNG Date/Time of Note DATE: 02/11/19 TIME: 18:25 Hx of Present Illness Interventional cardiology consultation note Chief complaint: Chest pain Reason for consult: Chest pain History of present illness: Thank you for this referral. This is a 43-year-old female with reported history of congestive heart failure, thyroid disorder who came to emergency room with complaint. Patient said that she fell a couple of days ago and since then she has had the whole left side satinder nful especially her chest now. She has been admitted has negative cardiac enzyme Allergies: Penicillins Medications were reviewed as per medical reconciliation sheet Family history: No coronary artery disease Social history: Past medical history: Reported history of congestive heart failure about a year ago diagnosed at [facility]. Thyroid disorder hypertension Review of system: Patient denies all others except for above-mentioned Past Medical History Home Meds Active Scripts Cyclobenzaprine Hcl* (Cyclobenzaprine Hcl*) 10 Mg Tablet, 10 MG PO BID for 7 Days, TAB Prov:GRACE BARKER MD 01/06/17 Methylprednisolone* (Medrol* DOSE PACK) 4 Mg/Dose-Pack Tab.ds.pk, 4 MG PO . DIRECTED for 14 Days, PACKET Prov:GRACE BARKER MD 01/06/17 Pantoprazole* (Pantoprazole*) 40 Mg Tablet.dr, 40 MG PO DAILY@06 for 14 Days Prov:GRACE BARKER MD 01/06/17 Reported Medications Albuterol Sulfate* (Albuterol Sulfate* Neb) 0.083%-3 Ml Neb, 2.5 MG NEB Q4H PRN for WHEEZING AND SOB, EA 07/12/15 Levothyroxine Sodium* (Synthroid*) 100 Mcg Tablet, 100 MCG PO DAILY 06/19/13 Atenolol* (Atenolol*) 50 Mg Tablet, 50 MG PO DAILY 06/19/13 Medications Current Medications IV Flush (NS 3 ml) 3 ml PER PROTOCOL IV ; Start 02/11/19 at 00:00 Ondansetron HCl (Zofran Inj) 4 mg Q6H PRN IV NAUSEA/VOMITING Last administered on 02/11/19 02:42; Admin Dose 4 MG; Start 02/11/19 at 00:00 Aspirin (Aspirin) 81 mg DAILY PO Last administered on 02/11/19 08:38; Admin Dose 81 MG; Start 02/11/19 at 09:00 Nitroglycerin (Nitroglycerin (Sl Tab) 0.4 Mg) 1 tab Q5M PRN SL .CHEST PAIN Last administered on 02/11/19 02:41; Admin Dose 1 TAB; Start 02/11/19 at 00:00 Acetaminophen (Tylenol Tab) 650 mg Q6H PRN PO .PAIN 1-3 OR TEMP; Start 02/11/19 at 00:00 Acetaminophen/ Hydrocodone Bitart ([place] (5/325)) 1 tab Q6H PRN PO .PAIN 4-6 Last administered on 02/11/19 08:38; Admin Dose 1 TAB; Start 02/11/19 at 00:00 Enoxaparin Sodium (Lovenox) 40 mg DAILY SC Last administered on 02/11/19at 09:46; Admin Dose 40 MG; Start 02/11/19 at 09:00 Albuterol (Proventil 0.083% (Neb)) 2.5 mg Q4H RESP THERAPY PRN NEB WHEEZING AND SOB; Start 02/11/19 at 00:00 Atenolol (Tenormin) 50 mg DAILY PO Last administered on 02/11/19 08:38; Admin Dose 50 MG; Start 02/11/19 at 09:00 Pantoprazole (Protonix Tab) 40 mg DAILY@06 PO Last administered on 02/11/19 05:42; Admin Dose 40 MG; Start 02/11/19 at 06:00 Levothyroxine Sodium (Synthroid) 100 mcg AC BREAKFAST PO Last administered on 02/11/19 06:05; Admin Dose 100 MCG; Start 02/11/19 at 07:00 Morphine Sulfate (morphine) 3 mg Q3H PRN IV SEVERE PAIN LEVEL 7-10 Last administered on 02/11/19at 14:19; Admin Dose 3 MG; Start 02/11/19 at 15:00 Allergies: Coded Allergies: Penicillins (Verified Allergy, Mild, 02/04/14) Past Surgical History Past Surgical Hx: other (Thyroidectomy) Social History Alcohol Use: occasionally Smoking Status: Current every day smoker Drug Use: none Exam/Review of Systems Vital Signs Vitals Vital Signs Date Temp Pulse Resp B/P (MAP) Pulse Ox O2 O2 Flow FiO2 Time Delivery Rate 02/11/19 75 16:01 02/11/19 98.4 19 124/76 98 15:30 (92) 02/11/19 Room Air 04:00 Intake and Output 02/10/19 02/10/19 02/11/19 1515:00 23:00 07:00 IntakeIntake Total 220 ml BalanceBalance 220 ml Exam Exam General: no acute distress HEENT: NC/AT. pupils are equal. round. NECK: NO JVD. no stridor. CV: RRR. systolic murmur; no gallop or rubs. PULM: no wheezing or rhonchi. GI: SOFT, NT, ND, no rebound or guarding Extremity: trace B/L LE edema. no clubbing. neuro: awake and alert, OX3. Psych: calm and pleasant rectal: deferred Derm: Multiple bruises noted on the left side of body EKG was personally showed normal sinus rhythm normal ECG Labs Result Diagram: 02/11/19 1041 02/11/19 1041 Results 24hrs Laboratory Tests Test 02/10/19 19:01 02/10/19 19:04 02/11/19 10:41 White Blood Count 9.3 12.0 #H Red Blood Count 4.04 L 3.93 L Hemoglobin 12.5 12.2 Hematocrit 38.9 37.3 Mean Corpuscular Volume 96.3 94.9 Mean Corpuscular Hemoglobin 30.9 31.0 Mean Corpuscular 32.1 32.7 Hemoglobin Concent Red Cell Distribution Width 13.4 13.1 Platelet Count 365 365 Mean Platelet Volume 9.4 9.9 Immature Granulocytes % 0.300 0.300 Neutrophils % 57.2 66.1 Lymphocytes % 32.9 25.4 Monocytes % 6.9 6.1 Eosinophils % 2.3 1.8 Basophils % 0.4 0.3 Nucleated Red Blood Cells % 0.0 0.0 Immature Granulocytes # 0.030 0.040 H Neutrophils # 5.3 7.9 H Lymphocytes # 3.0 H 3.0 H Monocytes # 0.6 0.7 Eosinophils # 0.2 0.2 Basophils # 0.0 0.0 Nucleated Red Blood Cells # 0.0 0.0 Prothrombin Time 13.0 Prothrombin Time Ratio 1.0 INR International 0.97 Normalized Ratio Activated Partial Thromboplast 26.9 Time Sodium Level 142 137 Potassium Level 4.1 4.4 Chloride Level 107 108 Carbon Dioxide Level 29 23 Anion Gap 6 6 Blood Urea Nitrogen 16 11 Creatinine 0.77 0.54 Est Glomerular Filtrat > 60 > 60 Rate mL/min Glucose Level 91 93 Calcium Level 9.0 8.7 Total Bilirubin 0.0 L 0.1 L Direct Bilirubin 0.00 0.00 Indirect Bilirubin 0.0 0.1 Aspartate Amino 18 17 Transf (AST/SGOT) Alanine 10 L 24 Aminotransferase (ALT/SGPT) Alkaline Phosphatase 43 43 Creatine Kinase 62 64 Creatine Kinase Index 0.4 0.3 Creatinine Kinase MB (Mass) < 0.22 < 0.22 Troponin I < 0.012 < 0.012 B-Type Natriuretic Peptide 31 Total Protein 7.0 6.3 Albumin 4.1 3.6 Globulin 2.90 2.70 Albumin/Globulin Ratio 1.41 1.33 Urine Color YELLOW Urine Clarity SLIGHTLY CLOUDY A Urine pH 7.0 Urine Specific [place] 1.024 Urine Ketones NEGATIVE Urine Nitrite NEGATIVE Urine Bilirubin NEGATIVE Urine Urobilinogen NEGATIVE Urine Leukocyte Esterase NEGATIVE Urine Microscopic RBC 1 Urine Microscopic WBC 3 Urine Squamous MODERATE Epithelial Cells Urine Bacteria FEW A Urine Hemoglobin NEGATIVE Urine Glucose NEGATIVE Urine Total Protein NEGATIVE Hemoglobin A1c 5.4 Magnesium Level 1.8 Triglycerides Level 182 H Cholesterol Level 266 H LDL Cholesterol, Calculated 184 HDL Cholesterol 46 Cholesterol/HDL Ratio 5.7 Thyroid Stimulating 11.300 H Hormone (TSH) Medications Medications Current Medications IV Flush (NS 3 ml) 3 ml PER PROTOCOL IV ; Start 02/11/19 at 00:00 Ondansetron HCl (Zofran Inj) 4 mg Q6H PRN IV NAUSEA/VOMITING Last administered on 02/11/19at 02:42; Admin Dose 4 MG; Start 02/11/19 at 00:00 Aspirin (Aspirin) 81 mg DAILY PO Last administered on 02/11/19 08:38; Admin Dose 81 MG; Start 02/11/19 at 09:00 Nitroglycerin (Nitroglycerin (Sl Tab) 0.4 Mg) 1 tab Q5M PRN SL .CHEST PAIN Last administered on 02/11/19 02:41; Admin Dose 1 TAB; Start 02/11/19 at 00:00 Acetaminophen (Tylenol Tab) 650 mg Q6H PRN PO .PAIN 1-3 OR TEMP; Start 02/11/19 at 00:00 Acetaminophen/ Hydrocodone Bitart ([place] (5/325)) 1 tab Q6H PRN PO .PAIN 4-6 Last administered on 02/11/19 08:38; Admin Dose 1 TAB; Start 02/11/19 at 00:00 Enoxaparin Sodium (Lovenox) 40 mg DAILY SC Last administered on 02/11/19 09:46; Admin Dose 40 MG; Start 02/11/19 at 09:00 Albuterol (Proventil 0.083% (Neb)) 2.5 mg Q4H RESP THERAPY PRN NEB WHEEZING AND SOB; Start 02/11/19 at 00:00 Atenolol (Tenormin) 50 mg DAILY PO Last administered on 02/11/19 08:38; Admin Dose 50 MG; Start 02/11/19 at 09:00 Pantoprazole (Protonix Tab) 40 mg DAILY@06 PO Last administered on 02/11/19 05:42; Admin Dose 40 MG; Start 02/11/19 at 06:00 Levothyroxine Sodium (Synthroid) 100 mcg AC BREAKFAST PO Last administered on 02/11/19 06:05; Admin Dose 100 MCG; Start 02/11/19 at 07:00 Morphine Sulfate (morphine) 3 mg Q3H PRN IV SEVERE PAIN LEVEL 7-10 Last administered on 02/11/19 14:19; Admin Dose 3 MG; Start 02/11/19 at 15:00 MARIANA TAFOYA MD Feb 11, 2019 18:28
[2019-02-12] VITALS (10 sets, daily range): BP systolic 97–121; BP diastolic 52–75; PULSE 55–85; RESP 16–19
[2019-02-12] MEDS: morphine 4 MG/ML VIAL IV PRN ×5 (01:45→18:41)
[2019-02-12] MEDS: PANTOPRAZOLE (EC) 40 MG TAB PO SCH (06:44)
[2019-02-12] MEDS: LEVOTHYROXINE 100 MCG TAB PO SCH (06:44)
[2019-02-12] MEDS: ONDANSETRON 4 MG INJ IV PRN ×2 (07:57→15:22)
[2019-02-12] MEDS: ATENOLOL 50 MG TAB PO SCH (08:00)
[2019-02-12] MEDS: ASPIRIN 81 MG TAB PO SCH (08:00)
[2019-02-12] MEDS: ENOXAPARIN 40 MG/0.4 ML SYG SC SCH (08:01)
[2019-02-12] MEDS ORDERED: REGADENOSON 0.4 MG/5 ML SYG ONE (10:09)
--- NOTE | 2019-02-12 11:02 | CONS ---
Consult Date/Type/Reason Admit Date/Time Feb 10, 2019 at 20:23 Initial Consult Date 02/11/19 Type of Consultation: cv Requesting Provider: ROZ FUNG Date/Time of Note DATE: 02/12/19 TIME: 10:58 Subjective cardiology follow up S; d/w staff and staff. tele was reviewed. pt with no chest pain or pressure now but has had some chest pain yesterday O: General: no acute distress HEENT: NC/AT. pupils are equal. round. NECK: NO JVD. no stridor. CV: RRR. systolic murmur; no gallop or rubs. PULM: no wheezing or rhonchi. GI: SOFT, NT, ND, no rebound or guarding Extremity: trace B/L LE edema. no clubbing. neuro: awake and alert, OX3. Psych: calm and pleasant rectal: deferred : normal Objective Vitals Vital Signs Date Temp Pulse Resp B/P (MAP) Pulse Ox O2 O2 Flow FiO2 Time Delivery Rate 02/12/19 77 08:01 02/12/19 98.7 18 121/71 98 07:12 (88) 02/11/19 Room Air 04:00 Results/Medications Result Diagram: 02/11/19 1041 02/11/19 1041 Results 24 hrs Laboratory Tests Test 02/11/19 13:30 02/12/19 00:07 Urine Opiates Screen POSITIVE Urine Barbiturates NEGATIVE Urine Amphetamines Screen NEGATIVE Urine Benzodiazepines Screen POSITIVE Urine Cocaine Screen NEGATIVE Urine Cannabinoids POSITIVE Creatine Kinase 61 Creatine Kinase Index 0.4 Creatinine Kinase MB (Mass) < 0.22 Troponin I < 0.012 Home Meds Active Scripts Cyclobenzaprine Hcl* (Cyclobenzaprine Hcl*) 10 Mg Tablet, 10 MG PO BID for 7 Days, TAB Prov:GRACE BARKER MD 01/06/17 Methylprednisolone* (Medrol* DOSE PACK) 4 Mg/Dose-Pack Tab.ds.pk, 4 MG PO . DIRECTED for 14 Days, PACKET Prov:GRACE BARKER MD 01/06/17 Pantoprazole* (Pantoprazole*) 40 Mg Tablet.dr, 40 MG PO DAILY@06 for 14 Days Prov:GRACE BARKER MD 01/06/17 Reported Medications Albuterol Sulfate* (Albuterol Sulfate* Neb) 0.083%-3 Ml Neb, 2.5 MG NEB Q4H PRN for WHEEZING AND SOB, EA 07/12/15 Levothyroxine Sodium* (Synthroid*) 100 Mcg Tablet, 100 MCG PO DAILY 06/19/13 Atenolol* (Atenolol*) 50 Mg Tablet, 50 MG PO DAILY 06/19/13 Medications Current Medications IV Flush (NS 3 ml) 3 ml PER PROTOCOL IV ; Start 02/11/19 at 00:00 Ondansetron HCl (Zofran Inj) 4 mg Q6H PRN IV NAUSEA/VOMITING Last administered on 02/12/19 07:57; Admin Dose 4 MG; Start 02/11/19 at 00:00 Aspirin (Aspirin) 81 mg DAILY PO Last administered on 02/12/19 08:00; Admin Dose 81 MG; Start 02/11/19 at 09:00 Nitroglycerin (Nitroglycerin (Sl Tab) 0.4 Mg) 1 tab Q5M PRN SL .CHEST PAIN Last administered on 02/11/19 02:41; Admin Dose 1 TAB; Start 02/11/19 at 00:00 Acetaminophen (Tylenol Tab) 650 mg Q6H PRN PO .PAIN 1-3 OR TEMP; Start 02/11/19 at 00:00 Acetaminophen/ Hydrocodone Bitart ([place] (5/325)) 1 tab Q6H PRN PO .PAIN 4-6 Last administered on 02/11/19at 22:34; Admin Dose 1 TAB; Start 02/11/19 at 00:00 Enoxaparin Sodium (Lovenox) 40 mg DAILY SC Last administered on 02/12/19 08:01; Admin Dose 40 MG; Start 02/11/19 at 09:00 Albuterol (Proventil 0.083% (Neb)) 2.5 mg Q4H RESP THERAPY PRN NEB WHEEZING AND SOB; Start 02/11/19 at 00:00 Atenolol (Tenormin) 50 mg DAILY PO Last administered on 02/12/19 08:00; Admin Dose 50 MG; Start 02/11/19 at 09:00 Pantoprazole (Protonix Tab) 40 mg DAILY@06 PO Last administered on 02/12/19 06:44; Admin Dose 40 MG; Start 02/11/19 at 06:00 Levothyroxine Sodium (Synthroid) 100 mcg AC BREAKFAST PO Last administered on 02/12/19at 06:44; Admin Dose 100 MCG; Start 02/11/19 at 07:00 Morphine Sulfate (morphine) 3 mg Q3H PRN IV SEVERE PAIN LEVEL 7-10 Last administered on 02/12/19at 06:50; Admin Dose 3 MG; Start 02/11/19 at 15:00 Assessment/Plan Hospital Course (Demo Recall) Chest pain [place] was ruled out Hypertension: Under control Reported history of congestive heart failure: Currently does not appear to be in decompensated heart failure Thyroid disorder Severe dyslipidemia Recommendation: Start statin. Lexiscan today Continue with thyroid supplement and atenolol Thank you for his referral we will continue to follow along with you MARIANA TAFOYA MD [facility] MARIANA TAFOYA MD Feb 12, 2019 11:02
--- NOTE | 2019-02-12 11:14 | RADRPT ---
Echocardiogram Report Patient Name: Bell ALANIZtient ID: [id number] : 1975 (43y 2m)Study Date: 02/12/2019 6:37:10 AM Gender: FAccession #: [id number] Tech: Renetta Gomez [facility] Location: [facility] Ref.Physician: MARIANA PAYTON Height(Cm): BSA: Weight(Kg): Quality: AdequateAccount #: Procedures: Echocardiographic Report: Transthoracic echocardiogram with complete 2D, M-Mode, and doppler examination. Indications: Chest Pain. Measurements: 2D/M Mode Doppler Measurement Value Normal Range Measurement Value Normal Range LVIDd 2D 4.1 [ 3.8 - 5.2 ] cm AV Peak Darion 1.1 [ 100.0 - 170.0 ] cm/sec LVIDs 2D 1.6 [ 2.2 - 3.5 ] cm AV Peak PG 5.0 [ 2.0 - 9.0 ] mmHg LVPWd 2D 0.9 [ 0.6 - 0.9 ] cm LVOT Peak Darion 0.9 [ 70.0 - 110.0 ] cm/sec IVSd 2D 1.1 [ 0.6 - 0.9 ] cm LVOT Peak PG 3.0 [ 2.0 - 6.0 ] mmHg AoR Diam 2D 2.6 [ 2.3 - 3.1 ] cm MV E Peak Darion 0.7 [ 60.0 - 130.0 ] cm/sec EDV 2D 75.9 [ 46.0 - 106.0 ] ml MV A Peak Darion 0.6 [ 100.0 - 120.0 ] cm/sec ESV 2D 7.5 [ 14.0 - 42.0 ] ml MV E/A 1.1 [ 0.8 - 1.5 ] ratio EF 2D 90.1 [ 54.0 - 74.0 ] percent MV Decel Time 165 [ 104 - 258 ] msec LA Dimen 2D 2.8 [ 2.7 - 3.8 ] cm Lat E` Darion 0.1 [ 10.0 - 15.0 ] cm/sec Lateral E/E` 5.2 [ 1.0 - 2.0 ] ratio MV E/A 1.1 [ 0.8 - 1.5 ] ratio TR Peak Darion 2.0 [ 100.0 - 280.0 ] cm/sec TR Peak PG 16.0 mmHg RVSP 26.0 [ 10.0 - 36.0 ] mmHg RA Pressure 10.0 mmHg Findings: Left Ventricle: Normal left ventricular systolic function. Normal left ventricular cavity size. Mild concentric left ventricular hypertrophy. Ejection fraction is visually estimated at 60 %. Tissue Doppler/Mitral Doppler indices are within normal limits. Right Ventricle: Normal right ventricular size. Normal right ventricular systolic function. Left Atrium: The left atrium is normal in size. Right Atrium: The right atrium is normal in size. Mitral Valve: Normal appearance and function of the mitral valve with trace physiologic regurgitation. Aortic Valve: Normal appearance of the aortic valve. No significant aortic stenosis or insufficiency. Tricuspid Valve: Normal appearance of the tricuspid valve. Estimated peak PA systolic pressure 26 mmHg. There is trace tricuspid regurgitation. Pulmonic Valve: Pulmonic valve not well visualized. Pericardium: Normal pericardium with no significant pericardial effusion. Aorta: Normal aortic root. IVC: Normal size and normal respiratory collapse consistent with normal right atrial pressure. Conclusions: Normal left ventricular systolic function. Normal left ventricular cavity size. Mild concentric left ventricular hypertrophy. Ejection fraction is visually estimated at 60 %. Tissue Doppler/Mitral Doppler indices are within normal limits. Normal appearance and function of the mitral valve with trace physiologic regurgitation. Normal appearance of the aortic valve. No significant aortic stenosis or insufficiency. Normal appearance of the tricuspid valve. Estimated peak PA systolic pressure 26 mmHg. There is trace tricuspid regurgitation. Electronically Signed By: Mariana Payton 2019-02-12 11:14:05 PDT
--- NOTE | 2019-02-12 12:02 | DS ---
Date/Time of Note Date/Time of Note DATE: 02/12/19 TIME: 11:57 Discharge Summary Admission/Discharge Info Admit Date/Time Feb 10, 2019 at 20:23 Discharge Date/Time Discharge Diagnosis 43-year-old female who presents to the emergency room with sudden onset of se emely left-sided chest pressure with dizziness and subsequent fall, managed for the following 1. 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 Mild centrilobular emphysema 3. + fam hx of premature CAD 4. chronic tobacco user 5. Left ankle swelling and pain without evidence of fracture after mechanical fall 6. . History of thyroid cancer status post thyroidectomy 1998 7. Reported History of CHF without evidence of acute exacerbation 8. Dyslipidemia 9. Chronic adrenal nodule 1X1 -Patient has been notified about this in the past, patient is recommended for serial monitoring. . Hospital Course Is a 43-year-old female who had presented with an acute exacerbation of chronic left-sided chest pain I was admitted for ACS rule out. The patient had had episodes of this chest pain in the past and 1 of them was associated with dizziness that resulted in a mechanical fall and patient spraining her ankle. Ankle x-rays were done that did not show any acute fracture, and she was treated with pain control and supportive care for her ankle. Chest pain cardiology consultation was obtained, the patient ruled out with 3- cardiac enzymes and she also had a 2D echocardiogram that showed ejection fraction of 60% without any significant valvular abnormalities as and no significant diastolic dysfunction. However due to risk factors of a positive family history of premature coronary artery disease as well as chronic tobacco use, the patient did undergo a nuclear medicine stress test. Report from that is pending at this time. If it is negative the patient to be discharged in stable condition. Her medications were adjusted based on her evaluation she did have evidence of dyslipidemia with hypertriglyceridemia and hypercholesterolemia and she was started on statin therapy. Patient has a history of thyroid cancer per her report and she is status post thyroidectomy and needs to be on Synthroid 100 mcg every day. Patient however admits to not being very compliant with this. TSH was elevated accordingly, but had dizzy and was not digested, and states she was advised on the need to be compliant to medication. She was also extensively counseled on the need to quit tobacco use and the dangers associated with continued usage. She verbalized knowledge and understanding and agreement with the plan. Based on assessment chest pain is likely musculoskeletal, however we will wait until final results of stress testing is available. Patient describes neuropathic pain which could be associated with radiation induced damage because she did undergo radiation therapy for her thyroid cancer. Based on this she may benefit from gabapentin versus Lyrica treatment as an outpatient. I would also recommend referral to pain management as outpatient. Otherwise she is to be continued on current discharge regimen and I will follow- up with primary care doctor in the next 1 to 2 weeks to ensure continued resolution of symptoms. Urinalysis was mildly suggestive of a urinary tract infection, but urine cultures were not exactly convincing and patient was not symptomatic, hence she was not treated. She has been evaluated by myself in detail and if stress test is negative she is in stable condition for discharge. Addendum: STress test came back negative and so ang was discharged in stable condition. Patient also had CT of LE that showed only sprain and no acute fracture. She was given cam boots and crutches and will f/u with PCP outpatient . Home Meds Active Scripts Ibuprofen* (Ibuprofen*) 400 Mg Tablet, 400 MG PO TID for 3 Days, #9 TAB take with food Prov:BRENDON FUNGPaulie Powell. 02/12/19 Gabapentin* (Gabapentin*) 100 Mg Capsule, 200 MG PO TID, #180 CAP patient may start with 100 three times daily if 200 is too sedating Prov:CLAUDIA FUNGHUDSON Powell. 02/12/19 Hydrocodone Bit-Acetaminophen (Hydrocodone Bit-APAP) 5-325MG Tablet, 1 TAB PO Q6H PRN for .PAIN 4-6, #10 TAB Prov:ANTONIETACLAUDIAHUDSON Jackson 02/12/19 Aspirin (Aspirin) 81 Mg Chew, 81 MG PO DAILY, #30 TAB 2 Refills Prov:CLAUDIA FUNGHUDSON Jackson 02/12/19 Atorvastatin* (Atorvastatin*) 80 Mg Tablet, 80 MG PO HS, #90 TAB Prov:ANNA DOTY MD 11/10/18 Pantoprazole* (Pantoprazole*) 40 Mg Tablet., 40 MG PO DAILY@06 for 14 Days Prov:GRACE BARKER MD 01/06/17 Reported Medications Hydrocodone/Acetaminophen ([place] 5-325 Tablet) 1 Each Tablet, 1 EACH PO DAILY PRN for SEVERE PAIN LEVEL 7-10, TAB 11/08/18 Levothyroxine Sodium* (Levothyroxine Sodium*) 100 Mcg Tablet, 100 MCG PO BEFORE BREAKFAST, #30 TAB 11/08/18 Albuterol Sulfate* (Albuterol Sulfate* Neb) 0.083%-3 Ml Neb, 2.5 MG NEB Q4H PRN for WHEEZING AND SOB, EA 07/12/15 Levothyroxine Sodium* (Synthroid*) 100 Mcg Tablet, 100 MCG PO DAILY 06/19/13 Atenolol* (Atenolol*) 50 Mg Tablet, 50 MG PO DAILY 06/19/13 Discontinued Scripts Cyclobenzaprine Hcl* (Cyclobenzaprine Hcl*) 10 Mg Tablet, 10 MG PO BID for 7 Days, TAB Prov:GRACE BARKER MD 01/06/17 Methylprednisolone* (Medrol* DOSE PACK) 4 Mg/Dose-Pack Tab.ds.pk, 4 MG PO . D IRECTED for 14 Days, PACKET Prov:GRACE BARKER MD 01/06/17 Follow-up Plan 1. Follow-up with your primary care doctor over the next 1 to 2 weeks to ensure continued resolution of symptoms 2. I started you on a new medication called gabapentin, I have started you at the lowest doses but your dosages can be increased to improve your comfort. Th rj follow-up with your primary care doctor and have them titrate your medication as needed. 3. Also notify your primary care doctor about your adrenal nodule, you will need serial monitoring just to ensure that he does not continue to get weaker 4. Please stay compliant with your medications, if you have questions or concerns, please notify your pharmacist or your primary care physician. 5. Review your medication list which are nurses before you leave, if you need any new prescriptions or have any questions please let somebody know you before you leave. 6. Please stop smoking. If you have already stopped, Good for you!!!. It is however an ongoing process. If you need help or resources, please let someone know before you leave. We are here to help you. It has been associated with a lot of disease processes and is not favourable for healing. Primary Care Provider Not On Staff Doctor Time spent on discharge: > 30 minutes Pending Labs Laboratory Tests Test 02/11/19 13:30 02/12/19 00:07 Urine Opiates Screen POSITIVE (NEGATIVE) Urine Barbiturates NEGATIVE (NEGATIVE) Urine Amphetamines Screen NEGATIVE (NEGATIVE) Urine Benzodiazepines Screen POSITIVE (NEGATIVE) Urine Cocaine Screen NEGATIVE (NEGATIVE) Urine Cannabinoids POSITIVE (NEGATIVE) Creatine Kinase 61 IU/L (23-200) Creatine Kinase Index 0.4 Creatinine Kinase MB (Mass) < 0.22 ng/ml (0.0-2.4) Troponin I < 0.012 ng/ml (0.000-0.120) Microbiology Date/Time Source Procedure Growth Status 02/11/19 13:30 Clean Catch Urine Urine Culture - Preliminary Mixed Resulted Gram Positive Organisms ROZ FUNG Feb 12, 2019 12:02
[2019-02-12] MEDS ORDERED: HYDR-3601 PO (12:04)
[2019-02-12] MEDS ORDERED: GABA100C14 PO (12:04)
[2019-02-12] MEDS ORDERED: ASPI-831 PO (12:04)
--- NOTE | 2019-02-12 12:05 | PDOCDIS ---
Discharge Instructions DIAGNOSIS Discharge Diagnosis 43-year-old female who presents to the emergency room with sudden onset of severe left-sided chest pressure with dizziness and subsequent fall, managed for the following 1. 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 Mild centrilobular emphysema 3. + fam hx of premature CAD 4. chronic tobacco user 5. Left ankle swelling and pain without evidence of fracture after mechanical fall 6. . History of thyroid cancer status post thyroidectomy 1998 7. Reported History of CHF without evidence of acute exacerbation 8. Dyslipidemia 9. Chronic adrenal nodule 1X1 -Patient has been notified about this in the past, patient is recommended for serial monitoring. . CONDITION [id number] Patient Condition: [id number] Stable HOME CARE INSTRUCTIONS: [id number] Diet Instructions: [id number] Low Fat /Cholesterol ACTIVITY: [id number] Activity Restrictions: [id number] Slowly Increase Activity Rest between Activity FOLLOW UP/APPOINTMENTS Follow-up Plan 1. Follow-up with your primary care doctor over the next 1 to 2 weeks to ensure continued resolution of symptoms 2. I started you on a new medication called gabapentin, I have started you at the lowest doses but your dosages can be increased to improve your comfort. These follow-up with your primary care doctor and have them titrate your medication as needed. 3. Also notify your primary care doctor about your adrenal nodule, you will need serial monitoring just to ensure that he does not continue to get weaker 4. Please stay compliant with your medications, if you have questions or concerns, please notify your pharmacist or your primary care physician. 5. Review your medication list which are nurses before you leave, if you need any new prescriptions or have any questions please let somebody know you before you leave. 6. Please stop smoking. If you have already stopped, Good for you!!!. It is however an ongoing process. If you need help or resources, please let someone k now before you leave. We are here to help you. It has been associated with a lot of disease processes and is not favourable for healing. ROZ FUNG Feb 12, 2019 12:05
[2019-02-12] MEDS ORDERED: KETOROLAC 30 MG INJ IV STA (12:45)
[2019-02-12] MEDS ORDERED: IBUP-1541 PO (12:49)
[2019-02-12] MEDS ORDERED: METOCLOPRAMIDE 10 MG INJ IV ONE (13:00)
[2019-02-12] MEDS ORDERED: FAMOTIDINE 20 MG INJ IV ONE (13:00)
[2019-02-12] MEDS: HYDROCODONE/APAP (5/325) TAB PO PRN (14:13)
== END 2019-02-12 19:56 | disposition home or self-care (01) ==
LOC: E/R 18:16 → 6WM 20:23
PROVIDERS: ADMIT Internal Medicine; ATTEND Family Medicine
DX: R07.89 Other chest pain (principal); R53.1 Weakness; J43.9 Emphysema, unspecified; E78.5 Hyperlipidemia, unspecified; E27.9 Disorder of adrenal gland, unspecified; M25.572 Pain in left ankle and joints of left foot; R22.42 Localized swelling, mass and lump, left lower limb; I11.0 Hypertensive heart disease with heart failure; I50.9 Heart failure, unspecified; Z85.850 Personal history of malignant neoplasm of thyroid; W19.XXXA Unspecified fall, initial encounter; Z82.49 Family history of ischemic heart disease and other diseases of the circulatory system
CPT/HCPCS: 36415; 70450; 71045; 71275; 73610; 73700; 78452; 80053; 80061; 80307; 81001; 82550; 82553; 83036; 83735; 83880; 84443; 84484; 85025; 85610; 85730; 87086; 93005; 93017; 93306; 93970; 96374; 96375; A9500; A9505; J1170; J1650; J1885; J2270; J2405; J2765; J2785; Q9967; Z7500; Z7502; Z7610; 81003; G0378